=== PATIENT | female | born 1980 | race Caucasian/White ===

== ENCOUNTER 2023-06-22 06:31 | Emergency (ER) | payer SELFPAY ==
[2023-06-22 06:39] VITALS: BP 134/96; PULSE 84; RESP 16; TEMP 36.6; O2SAT 100; BMI 25.8
--- NOTE | 2023-06-22 07:00 | CRLHL7_ITS ---
For Patients: As a result of the Century Cures Act, medical imaging exams and procedure reports are released immediately into your electronic medical record. You may view this report before your referring provider. If you have questions, please contact your health care provider. INDICATION: Left lower quadrant abdominal pain diarrhea. COMPARISON: April 30, 2020 TECHNIQUE: CT examination of the abdomen and pelvis was performed following the uneventful intravenous administration of 79 cc of Isovue 370. Thin section axial images were obtained from the lung bases through the pubic symphysis. Oral contrast was not administered. Please note that all CT scans at this facility use dose modulation, iterative reconstruction, and/or weight-based dosing when appropriate to reduce radiation dose to as low as reasonably achievable. FINDINGS: LUNG BASES: The lung bases as visualized appear normal.The heart size is normal at the lung bases. LIVER/BILIARY SYSTEM:The liver is normal in size and configuration. There is no focal mass and there is no intra- or extra hepatic biliary ductal dilatation.Contracted but otherwise unremarkable appearing gallbladder ADRENALS: Normal KIDNEYS, URETERS and BLADDER:The kidneys appear normal. No visible mass, calculus or hydronephrosis. The ureters and bladder as visualized appear normal. SPLEEN:Normal appearance. PANCREAS: Appears normal. RETROPERITONEUM and MESENTERY: There is no mass, adenopathy or aortic aneurysm. GASTROINTESTINAL SYSTEM: Diffuse wall thickening of the colon and rectum consistent with proctocolitis. No intramural air, free air or collection. PELVIS: No mass, adenopathy or free fluid.An IUD appears to be properly located OSSEOUS STRUCTURES and ABDOMINAL WALL: There is an age-appropriate appearance of the osseous structures.No significant abdominal wall defect. OTHER: No free fluid or free air. IMPRESSION: Proctocolitis. No intramural air, free air or collection. Please note that all CT scans at this facility use dose modulation, iterative reconstruction, and/or weight-based dosing when appropriate to reduce radiation dose to as low as reasonably achievable. Dictated by Dilshad Cantor MD @ 06/22/2023 7:36:05 AM (Electronically Signed)
--- NOTE | 2023-06-22 07:07 | ED_ITS ---
HPI - General Adult General Date Seen: 06/22/23 Chief complaint: Abdominal Pain Stated complaint: diverticulitis flareup Time Seen by Provider: 06/22/23 06:49 Source: patient Mode of arrival: ambulatory Limitations: no limitations History of Present Illness HPI narrative: Patient is a 42-year-old woman with a history of kidney stones and an episode of diverticulitis she says diagnosed at [facility] 1 year ago. She has had left lower quadrant pain which started yesterday associated with diarrhea and some bright red blood per rectum. She describes the abdominal pain is severe. She has not had fevers, vomiting, perhaps a little dysuria but no hematuria. She has a history of a larger kidney stone requiring retrieval and stenting, but denies other abdominal surgeries. She does not smoke or drink. Related Data Previous Rx's Medication Instructions Recorded oxycodone 5 mg capsule 5 mg PO Q6H PRN pain #8 caps 06/22/23 Allergies Allergy/AdvReac Type Severity Reaction Status Date / Time No Known Drug Allergies Allergy Verified 06/22/23 06:41 Review of Systems Status of ROS: Reports: 10 or more systems reviewed and unremarkable except as noted in History and below [facility] Social History Smoking Status: Never smoker Do you use any of these nicotine containing products: None How often do you have a drink containing alcohol: monthly or less AUDIT-C Alcohol total score: 1 Non-prescribed substance use: denies use Exam Narrative: Exam Narrative: Vital signs as noted above. In general, an alert, nontoxic woman lying in a position. Head: Normocephalic, atraumatic. Eyes: Pupils are equal reactive. Extraocular movements are full. Conjunctivae are normal. ENT: Mucous membranes are moist. Throat is normal. Neck: Supple without lymphadenopathy. Heart: Regular rate and rhythm. No murmur or rub. Lungs: Clear bilaterally. No increased work of breathing, crackles or wheezes. Abdomen: Soft and nondistended. Left lower quadrant tenderness without rebound guarding or rigidity. No other abdominal tenderness. Extremities: Well perfused. No edema. No calf tenderness. Pulses intact. Neurologic: Patient is alert and oriented to person and place. Speech is fluent. Face is symmetric. Moves all extremities equally. Affect: Normal. Skin: Warm and dry. Well perfused. Const: Vital Signs, click to edit/add: Vital Signs - 24 hr 06/22/23 06:39 Temperature 97.9 F Pulse Rate [Left P ulse Oximeter] 84 Respiratory Rate 16 Blood Pressure [Ri ght Upper Arm] 134/96 H Pulse Oximetry 100 Oxygen Delivery Me thod Room Air Documenting provider has reviewed patient's vital signs: yes Course Course Hospital Course: Review of her records shows the number of CT scans, the majority have been normal. I do not see specific mention of diverticulosis previously, but these have generally been noncontrast CT scans. We established an IV, give some Toradol and Zofran, fluids. Labs including CBC, metabolic panel, CRP, lactate, UA are pending. Diagnostic considerations include diverticulitis, colitis, kidney stone, UTI/pyelonephritis, ovarian torsion, ovarian cyst, ectopic among others. Labs are reassuring, white blood cell count is 9.3 with an unremarkable diff. Hemoglobin is 14.3. Metabolic panel is normal aside from a mildly elevated BUN of 26. LFTs are unremarkable. CRP is less than 0.5 and lipase is normal. Urinalysis is entirely negative, 0-2 red cells and 0-2 white cells. test is negative. I did elect to do a CT scan of the abdomen to look for possible diverticulitis, colitis, kidney stone etcetera. Radiology reads this as showing diffuse thickening of the colon and rectum consistent with proctocolitis. I have reviewed this diagnosis with her. Interestingly, she does not appear to have significant diverticulosis, and I do wonder if the episode a year ago was more related to colitis rather than diverticulitis. She says that she feels like she gets the symptoms fairly frequently although milder than today with some abdominal pain and blood in her stools. I have recommended that she follow up with her primary care doctor and they discussed possible referral to GI and consider colonoscopy. She had Toradol, morphine and Zofran and is feeling improved. For home I have recommended use of ibuprofen 400 mg plus Tylenol 1000 mg 3 times daily, bland diet, and I have given her oxycodone number 8 if needed for more severe pain. Return to the emergency department for new symptoms such as fever, vomiting, or if pain is progressively worse. Vital Signs Vital signs: Initial Vital Signs Temperature 97.9 F 06/22/23 06:39 Temperature Source Temporal Artery Scan 06/22/23 06:39 Pulse Rate 84 06/22/23 06:39 Respiratory Rate 16 06/22/23 06:39 Blood Pressure 134/96 H 06/22/23 06:39 Blood Pressure Mean 108 H 06/22/23 06:39 Blood Pressure Position Sitting 06/22/23 06:39 Pulse Oximetry 100 06/22/23 06:39 Oxygen Delivery Method Room Air 06/22/23 06:39 Vital Signs Temperature 97.9 F 06/22/23 06:39 Pulse Rate 84 06/22/23 06:39 Respiratory Rate 16 06/22/23 06:39 Blood Pressure 134/96 H 06/22/23 06:39 Pulse Oximetry 100 06/22/23 06:39 Oxygen Delivery Method Room Air 06/22/23 06:39 Temperature 97.9 F 06/22/23 06:39 Pulse Rate 84 06/22/23 06:39 Respiratory Rate 16 06/22/23 06:39 Blood Pressure 134/96 H 06/22/23 06:39 Pulse Oximetry 100 06/22/23 06:39 Oxygen Delivery Method Room Air 06/22/23 06:39 Medical Decision Making Lab Data Labs: Lab Results 06/22/23 06/22/23 Range/Units 06:48 07:20 WBC 9.32 (4.50-11.00) K/uL RBC 4.85 (4.00-5.20) m/uL Hgb 14.3 (12.0-16.0) gm/dL Hct 43.6 (33.0-51.0) % MCV 90 (80-100) fL MCH 30 (26-34) pg MCHC 33 (32-36) gm/dL RDW Coeff of Sim 13.5 (11.5-15.5) % Plt Count 256 (140-440) K/uL Neut % (Auto) 53.7 (42.0-72.0) % Lymph % (Auto) 37.1 (20-44) % [place] % (Auto) 7.4 (0.0-11.0) % Eos % (Auto) 1.4 (0.0-7.0) % Baso % (Auto) 0.3 (0.0-3.0) % Neut # (Auto) 5.00 (1.7-7.0) K/uL Lymph # (Auto) 3.46 H (0.90-2.90) K/uL Barnes # (Auto) 0.70 (0.00-0.90) K/UL Eos # (Auto) 0.13 (0.00-0.50) K/uL Baso # (Auto) 0.03 (0.00-0.30) K/uL Abs Immat Gran (auto) 0.01 (0.00-0.30) K/uL Imm/Tot Granulo (auto) 0.1 % Sodium 139 (135-149) mmol/L Potassium 4.0 (3.6-5.1) mmol/L Chloride 105 (96-114) mmol/L Carbon Dioxide 26 (20-32) mmol/L BUN 26 H (5-24) mg/dL Creatinine 0.9 (0.5-1.5) mg/dL Estimated Creat Clear 77.79 Estimated GFR 83 ml/min Glucose 115 (60-115) mg/dL Calcium 9.7 (8.4-10.6) mg/dL Total Bilirubin 1.1 (0.1-1.5) mg/dL Direct Bilirubin 0.0 (0.0-0.5) mg/dL AST 26 (12-35) U/L ALT 25 (4-35) U/L Alkaline Phosphatase 48 (40-150) U/L C-Reactive Protein < 0.5 L (0.5-1.0) mg/dL Total Protein 7.3 (6.0-8.3) g/dL Albumin 4.5 (3.3-5.0) g/dL Lipase 124 (23-300) U/L Urine Color Yellow (Yellow) Urine Appearance Clear (Clear) Urine pH 6.0 (5.0-8.5) Ur Specific [place] 1.015 (1.000-1.030) Urine Protein Negative (Negative) Urine Glucose (UA) Negative (Negative) Urine Ketones Negative (Negative) Urine Blood Negative (Negative) Urine Nitrite Negative (Negative) Urine Bilirubin Negative (Negative) Urine Urobilinogen 0.2 (0.2-1.0) Ur Leukocyte Esterase Negative (Negative) Urine RBC 0-2 (0-2) Urine WBC 0-2 (0-5) Ur Squamous Epith Cells None (None-Few) Urine Bacteria None (None) Urine HCG, Qual Negative (Negative) Discharge Plan Discharge Clinical Impression: Colitis Patient Disposition: Home, Self-Care Condition: Improved Instructions: Colitis (ED) Additional Instructions: [place] diet, maintain hydration. Ibuprofen 400 mg plus Tylenol 1000 mg 3 times daily. Oxycodone if needed for more severe pain. Return to the ER for new symptoms such as fever, vomiting, or if pain is worsening rather than stable to improved. I would recommend follow-up with your primary care doctor in the next 1-2 weeks for recheck and discuss possible further evaluation. Prescriptions: New oxycodone 5 mg capsule 5 mg PO Q6H PRN (Reason: pain) Qty: 8 0RF Stand Alone Forms: [facility] Info Instructions
[2023-06-22 07:11] LABS: Basophils Absolute Auto 0.03 K/uL (0.00-0.30); Basophils Percent Auto 0.3 % (0.0-3.0); Eosinophils Absolute Auto 0.13 K/uL (0.00-0.50); Eosinophils Percent Auto 1.4 % (0.0-7.0); Hematocrit 43.6 % (33.0-51.0); Hemoglobin* 14.3 gm/dL (12.0-16.0); Immature Granulocytes Abs Auto 0.01 K/uL (0.00-0.30); Immature Granulocytes Pct Auto 0.1 %; Lymphocytes Absolute Auto 3.46 K/uL (0.90-2.90); Lymphocytes Percent Auto 37.1 % (20-44); Mean Corpuscular HGB Conc 33 gm/dL (32-36); Mean Corpuscular Hemoglobin 30 pg (26-34); Mean Corpuscular Volume 90 fL (80-100); Monocytes Percent Auto 7.4 % (0.0-11.0); Neutrophils Percent Auto 53.7 % (42.0-72.0); Platelet Count* 256 K/uL (140-440); RDW Coefficient of Variation % 13.5 % (11.5-15.5); Red Blood Count 4.85 m/uL (4.00-5.20); White Blood Count* 9.32 K/uL (4.50-11.00)
[2023-06-22 07:13] LABS: Slide Review Reflex No
[2023-06-22] MEDS: 0.9 % SODIUM CHLORIDE 1000 ml 1,000 ML IV (07:23)
[2023-06-22] MEDS: KETOROLAC 15 MG/ML inj IVP (07:24)
[2023-06-22] MEDS: ONDANSETRON 2 MG/ML inj 4 MG IVP (07:46)
[2023-06-22 07:47] LABS: Appearance Urine Clear (Clear); Bilirubin Urine Negative (Negative); Blood Urine Negative (Negative); Color Urine Yellow (Yellow); Glucose Urine Negative (Negative); Ketones Urine Negative (Negative); Nitrite Urine Negative (Negative); Protein Urine Negative (Negative); Specific Gravity Urine 1.015 (1.000-1.030); Urobilinogen Urine 0.2 (0.2-1.0)
[2023-06-22 07:48] LABS: Albumin* 4.5 g/dL (3.3-5.0); Chloride* 105 mmol/L (96-114); Sodium* 139 mmol/L (135-149)
[2023-06-22 07:48] LABS: Leukocyte Esterase Urine Negative (Negative); RBC Urine 0-2 (0-2); WBC Urine 0-2 (0-5)
[2023-06-22 07:50] LABS: Creatinine* 0.9 mg/dL (0.5-1.5); Est. Creatinine Clearance* 77.79; Estimated Glomerular Filt Rate 83 ml/min
[2023-06-22 07:51] LABS: Alkaline Phosphatase* 48 U/L (40-150); Aspartate Amino Transferase* 26 U/L (12-35); Bilirubin Total* 1.1 mg/dL (0.1-1.5); Carbon Dioxide* 26 mmol/L (20-32); Total Protein* 7.3 g/dL (6.0-8.3)
[2023-06-22 07:52] LABS: Alanine Aminotransferase* 25 U/L (4-35); Blood Urea Nitrogen* 26 mg/dL (5-24); Calcium* 9.7 mg/dL (8.4-10.6); Glucose* 115 mg/dL (60-115); Lipase* 124 U/L (23-300)
[2023-06-22 07:56] LABS: C Reactive Protein* < 0.5 mg/dL (0.5-1.0)
[2023-06-22] MEDS: MORPHINE 4 MG/ML INJ IVP (07:57)
--- NOTE | 2023-06-22 08:04 | ED.NURSE ---
repeated pain medication for patient as continues to be in a lot of pain. 8/10 scale given morphine 4 mg IVP now.
[2023-06-22 08:45] LABS: Ur HCG Qualitative* Negative (Negative)
[2023-06-22 09:04] VITALS: PULSE 66; RESP 18; O2SAT 100
== END 2023-06-22 09:03 | disposition home or self-care (01) ==
PROVIDERS: Emergency Provider Emergency Medicine
DX: K52.9 Noninfective gastroenteritis and colitis, unspecified (principal)
CPT/HCPCS: 36415; 74177; 80048; 80076; 81001; 81025; 83690; 85025; 86140; 96374; 96375; 99283; 99284; J1885; J2270; J2405; J7030; Q9967

== ENCOUNTER 2023-09-07 14:06 | Emergency (ER) | payer MEDICAID, SELFPAY ==
[2023-09-07 14:27] VITALS: BP 154/83; PULSE 97; RESP 20; TEMP 36.7; O2SAT 100; BMI 25.8
--- NOTE | 2023-09-07 15:39 | CRLHL7_ITS ---
For Patients: As a result of the Century Cures Act, medical imaging exams and procedure reports are released immediately into your electronic medical record. You may view this report before your referring provider. If you have questions, please contact your health care provider. INDICATION: Right flank pain. History of nephrolithiasis. TECHNIQUE: CT abdomen and pelvis without contrast. COMPARISON: June 22, 2023. FINDINGS: Lower chest: Unremarkable. Liver: Normal in size and attenuation. No suspicious masses. Gallbladder and bile ducts: No stones or inflammation. No biliary dilatation. Pancreas: Unremarkable. No mass or inflammation. Spleen: Normal in size. No masses. Adrenal glands: Normal in size. No nodules. Kidneys: Each kidney contains a tiny nonobstructive stone. No ureteral stone and no hydronephrosis. GI tract: Unremarkable. Normal in caliber. No sign of mass or inflammation. Normal appendix. Vasculature: Abdominal aorta is normal in caliber. Lymph nodes: No lymphadenopathy. Peritoneum/Abdominal Wall: Unremarkable. No sign of mass or infiltration. No free air or significant free fluid. Pelvis: IUD remains in satisfactory position. New 4 x 3 cm simple appearing left adnexal cystic lesion on series 2, image 109. Pelvic structures otherwise unremarkable. Bones: Unremarkable for age. IMPRESSION: 1. Minimal bilateral nonobstructive nephrolithiasis. No ureteral stone and no hydronephrosis. 2. New 4 x 3 cm simple left adnexal cyst without evidence of rupture. This is almost certainly benign and does not require follow-up evaluation. 3. Remainder of the exam is unremarkable. No other finding to explain right-sided pain. Please note that all CT scans at this facility use dose modulation, iterative reconstruction, and/or weight-based dosing when appropriate to reduce radiation dose to as low as reasonably achievable. Dictated by Sharan Lopez MD @ 09/07/2023 6:09:07 PM (Electronically Signed)
--- NOTE | 2023-09-07 15:41 | ED.ABDPAIN ---
HPI - Abdominal Pain General Chief Complaint: Abdominal Pain Stated Complaint: Fever, abdominal pain Time Seen by Provider: 09/07/23 15:28 History of Present Illness HPI narrative: This 42-year-old female comes in reporting right flank pain that began today. She states that the pain is severe and she has had some associated nausea and vomiting. She states that the pain makes her want to squirm to try to get into a comfortable position. She does have a history of bilateral kidney stones and had 1 on the left side earlier this year that needed surgical intervention. She also has a history of generalized colitis. She has had endoscopy and colonoscopy this year. She also states that she has some biliary sludge and did have elevated bilirubin in a previous lab results. Related Data Previous Rx's Medication Instructions Recorded hydrocodone 5 mg-acetaminophen 325 1 tab PO Q4-6H PRN pain #15 tabs 09/07/23 mg tablet ketorolac 10 mg tablet 10 mg PO Q8H 5 days #15 tabs 09/07/23 methylprednisolone 4 mg tablets in See Rx Instructions PO .COMPLEX 09/07/23 a dose pack (Medrol (Hardik)) #21 ea ondansetron 4 mg disintegrating 4 mg PO Q6H #20 tabs 09/07/23 tablet Allergies Allergy/AdvReac Type Severity Reaction Status Date / Time No Known Drug Allergies Allergy Verified 06/22/23 06:41 Review of Systems Status of ROS Reports: 10 or more systems reviewed and unremarkable except as noted in History and below Narrative Constitutional: No fevers, no weight gain or loss. Eyes: No discharge. No vision changes. HENT: No congestion, no sore throat, no ear pain. Cardiovascular: No chest pain, no palpitations. Respiratory: No shortness of breath, no wheezes, no cough. Gastrointestinal: Chronic left-sided abdominal pain. Right-sided flank pain. Nausea with some vomiting. Genitourinary: No dysuria, no hematuria. Musculoskeletal: Normal range of motion. Skin: No rashes, no pruritis. Neurological: No dizziness, weakness, sensory change, speech change. Endo/Heme/Allergies: No bruising or bleeding. No polydipsia. Pysch: no suicidality, no anxiety, no insomnia. All other systems reviewed and are negative. PFSH PFSH Social History Smoking Status: Never smoker Do you use any of these nicotine containing products: None How often do you have a drink containing alcohol: never How often do you have six or more drinks on one occasion: Never AUDIT-C Alcohol total score: 0 Non-prescribed substance use: denies use Exam Narrative: Exam Narrative: Constitutional: Well-developed, well-nourished, no acute distress. HEENT: Normocephalic, atraumatic. Neck: Normal range of motion. Nontender. Supple. Heart: Regular. No murmurs. Normal rate. Intact distal pulses. Lungs: Clear to auscultation. No chest discomfort. No wheezes, rhonchi, or rales. Abdomen: Normal bowel sounds. Diffuse left-sided tenderness. Rebound tenderness is present. Right flank pain. Genitalia: Deferred. Back: No midline tenderness. Normal range of motion. Extremities: Normal range of motion. No injury. Skin: Intact. No rash. Warm. No erythema or pallor. Neurologic: No altered sensation. No weakness. Alert and oriented. Psychiatric: No suicidality. No anxiety or depression. No insomnia. Nursing notes and vitals signs are reviewed. Const: Vital Signs, click to edit/add: Vital Signs - 24 hr 09/07/23 14:27 Temperature 98.1 F Pulse Rate [Pulse Oximeter] 97 Respiratory Rate 20 Blood Pressure [Ri ght Upper Arm] 154/83 H Pulse Oximetry 100 Oxygen Delivery Me thod Room Air Course Vital Signs Vital signs: Initial Vital Signs Temperature 98.1 F 09/07/23 14:27 Temperature Source Temporal Artery Scan 09/07/23 14:27 Pulse Rate 97 09/07/23 14:27 Respiratory Rate 20 09/07/23 14:27 Blood Pressure 154/83 H 09/07/23 14:27 Blood Pressure Mean 106 H 09/07/23 14:27 Blood Pressure Position Sitting 09/07/23 14:27 Pulse Oximetry 100 09/07/23 14:27 Oxygen Delivery Method Room Air 09/07/23 14:27 Vital Signs Temperature 98.1 F 09/07/23 14:27 Pulse Rate 97 09/07/23 14:27 Respiratory Rate 20 09/07/23 14:27 Blood Pressure 154/83 H 09/07/23 14:27 Pulse Oximetry 100 09/07/23 14:27 Oxygen Delivery Method Room Air 09/07/23 14:27 Temperature 98.1 F 09/07/23 14:27 Pulse Rate 97 09/07/23 14:27 Respiratory Rate 20 09/07/23 14:27 Blood Pressure 154/83 H 09/07/23 14:27 Pulse Oximetry 100 09/07/23 14:27 Oxygen Delivery Method Room Air 09/07/23 14:27 MDM - Abdominal Pain MDM Narrative Medical decision making narrative: This patient comes in with severe right-sided flank and abdominal pain that seemed suspicious for kidney stone as she does have this in her history. CT scan of the abdomen and pelvis however shows nonobstructive stones in the kidneys but no sign of any abnormality that would cause right-sided abdominal pain. She does have a adnexal cyst in the left side that she already knew about. Additionally her lab results returned with reassuring findings. 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 She did receive IV doses of Toradol and Dilaudid here and is feeling better. She states that this pain is keeping her awake at night. She is considering taking Lupron for the possibility of endometriosis. I advised her to follow-up with her regular physicians for ongoing diagnosis and management. I did prescribe Toradol, Zofran, [place], and Medrol Dosepak. Perhaps a steroid will bring some relief especially if it has a rheumatologic or inflammatory source for the pain. Lab Data Labs: Lab Results 09/07/23 09/07/23 Range/Units 15:50 17:15 WBC 7.82 (4.50-11.00) K/uL RBC 4.34 (4.00-5.20) m/uL Hgb 13.2 (12.0-16.0) gm/dL Hct 39.9 (33.0-51.0) % MCV 92 (80-100) fL MCH 30 (26-34) pg MCHC 33 (32-36) gm/dL RDW Coeff of Sim 13.4 (11.5-15.5) % Plt Count 229 (140-440) K/uL Neut % (Auto) 65.2 (42.0-72.0) % Lymph % (Auto) 26.9 (20-44) % [place] % (Auto) 7.2 (0.0-11.0) % Eos % (Auto) 0.3 (0.0-7.0) % Baso % (Auto) 0.3 (0.0-3.0) % Neut # (Auto) 5.11 (1.7-7.0) K/uL Lymph # (Auto) 2.10 (0.90-2.90) K/uL [place] # (Auto) 0.60 (0.00-0.90) K/UL Eos # (Auto) 0.02 (0.00-0.50) K/uL Baso # (Auto) 0.02 (0.00-0.30) K/uL Abs Immat Gran (auto) 0.01 (0.00-0.30) K/uL Imm/Tot Granulo (auto) 0.1 % Sodium 139 (135-149) mmol/L Potassium 3.7 (3.6-5.1) mmol/L Chloride 106 (96-114) mmol/L Carbon Dioxide 23 (20-32) mmol/L Anion Gap 10 (7-15) mEq/L BUN 11 (5-24) mg/dL Creatinine 0.6 (0.5-1.5) mg/dL Estimated Creat Clear 116.68 Estimated GFR 116 ml/min Glucose 75 (60-115) mg/dL Calcium 9.0 (8.4-10.6) mg/dL Total Bilirubin 2.0 H (0.1-1.5) mg/dL Direct Bilirubin 0.0 (0.0-0.5) mg/dL AST 34 (12-35) U/L ALT 25 (4-35) U/L Alkaline Phosphatase 50 (40-150) U/L Total Protein 7.6 (6.0-8.3) g/dL Albumin 4.7 (3.3-5.0) g/dL Urine Color Yellow (Yellow) Urine Appearance Clear (Clear) Urine pH 6.0 (5.0-8.5) Ur Specific [place] 1.025 (1.000-1.030) Urine Protein Negative (Negative) Urine Glucose (UA) Negative (Negative) Urine Ketones 2+ A (Negative) Urine Blood Negative (Negative) Urine Nitrite Negative (Negative) Urine Bilirubin Negative (Negative) Urine Urobilinogen 0.2 (0.2-1.0) Ur Leukocyte Esterase Negative (Negative) Urine RBC 0-2 (0-2) Urine WBC 0-2 (0-5) Ur Squamous Epith Cells None (None-Few) Urine Bacteria None (None) Imaging Data CT scan - abdomen: Radiologist's impression: 1. Minimal bilateral nonobstructive nephrolithiasis. No ureteral stone and no hydronephrosis. 2. New 4 x 3 cm simple left adnexal cyst without evidence of rupture. This is almost certainly benign and does not require follow-up evaluation. 3. Remainder of the exam is unremarkable. No other finding to explain right-sided pain. Discharge Plan Discharge Clinical Impression: Abdominal pain Patient Disposition: Home, Self-Care Condition: Stable Additional Instructions: Take medication as prescribed. Follow up with MD. return if worsening. Prescriptions: New hydrocodone-acetaminophen 5-325 mg tablet 1 tab PO Q4-6H PRN (Reason: pain) Qty: 15 0RF ketorolac 10 mg tablet 10 mg PO Q8H 5 Days Qty: 15 0RF methylprednisolone [Medrol (Hardik)] 4 mg tablets,dose pack See Rx Instructions .ROUTE .COMPLEX Qty: 21 0RF Rx Instructions: orally per package directions ondansetron 4 mg tablet,disintegrating 4 mg PO Q6H Qty: 20 0RF Follow Up/Referrals: Provider,Not a Local [Primary Care Provider] - Stand Alone Forms: [employer] Info Instructions
[2023-09-07] MEDS: ONDANSETRON 2 MG/ML inj 4 MG IVP (15:50)
[2023-09-07] MEDS: KETOROLAC 30 MG/ML inj IVP (15:50)
[2023-09-07] MEDS: HYDROmorphone 0.5 mg/0.5 ml inj IVP ×2 (15:50→16:55)
[2023-09-07 16:07] LABS: Basophils Absolute Auto 0.02 K/uL (0.00-0.30); Basophils Percent Auto 0.3 % (0.0-3.0); Eosinophils Absolute Auto 0.02 K/uL (0.00-0.50); Eosinophils Percent Auto 0.3 % (0.0-7.0); Hematocrit 39.9 % (33.0-51.0); Hemoglobin* 13.2 gm/dL (12.0-16.0); Immature Granulocytes Abs Auto 0.01 K/uL (0.00-0.30); Immature Granulocytes Pct Auto 0.1 %; Lymphocytes Percent Auto 26.9 % (20-44); Mean Corpuscular HGB Conc 33 gm/dL (32-36); Mean Corpuscular Hemoglobin 30 pg (26-34); Mean Corpuscular Volume 92 fL (80-100); Monocytes Percent Auto 7.2 % (0.0-11.0); Neutrophils Absolute Auto 5.11 K/uL (1.7-7.0); Neutrophils Percent Auto 65.2 % (42.0-72.0); Platelet Count* 229 K/uL (140-440); RDW Coefficient of Variation % 13.4 % (11.5-15.5); Red Blood Count 4.34 m/uL (4.00-5.20); White Blood Count* 7.82 K/uL (4.50-11.00)
[2023-09-07 16:13] LABS: Slide Review Reflex No
[2023-09-07 16:20] LABS: Chloride* 106 mmol/L (96-114); Potassium* 3.7 mmol/L (3.6-5.1); Sodium* 139 mmol/L (135-149)
[2023-09-07 16:21] LABS: Albumin* 4.7 g/dL (3.3-5.0)
[2023-09-07 16:22] LABS: Creatinine* 0.6 mg/dL (0.5-1.5); Est. Creatinine Clearance* 116.68; Estimated Glomerular Filt Rate 116 ml/min
[2023-09-07 16:23] LABS: Blood Urea Nitrogen* 11 mg/dL (5-24); Carbon Dioxide* 23 mmol/L (20-32); Glucose* 75 mg/dL (60-115); Total Protein* 7.6 g/dL (6.0-8.3)
[2023-09-07 16:24] LABS: Alanine Aminotransferase* 25 U/L (4-35); Alkaline Phosphatase* 50 U/L (40-150); Anion Gap 10 mEq/L (7-15); Aspartate Amino Transferase* 34 U/L (12-35)
[2023-09-07 17:24] LABS: Appearance Urine Clear (Clear); Bilirubin Urine Negative (Negative); Blood Urine Negative (Negative); Color Urine Yellow (Yellow); Glucose Urine Negative (Negative); Ketones Urine 2+ (Negative); Leukocyte Esterase Urine Negative (Negative); Nitrite Urine Negative (Negative); Protein Urine Negative (Negative); Specific Gravity Urine 1.025 (1.000-1.030); Urobilinogen Urine 0.2 (0.2-1.0)
[2023-09-07 17:35] LABS: RBC Urine 0-2 (0-2); WBC Urine 0-2 (0-5)
== END 2023-09-07 18:45 | disposition home or self-care (01) ==
PROVIDERS: Emergency Provider Emergency Medicine Emergency Medical Services
DX: R10.9 Unspecified abdominal pain (principal)
CPT/HCPCS: 36415; 74176; 80048; 80076; 81001; 85025; 96374; 96375; 99284; 99285; J1170; J1885; J2405

== ENCOUNTER 2024-05-12 02:46 | Emergency (ER) | payer BC, SELFPAY ==
[2024-05-12 02:52] VITALS: BP 157/93; PULSE 91; RESP 16; TEMP 37.4; O2SAT 97; BMI 23.5
--- NOTE | 2024-05-12 03:13 | ED_ITS ---
HPI - General Adult General Date Seen: 05/12/24 Chief complaint: Shoulder Injury/Pain Stated complaint: right shoulder pain Time Seen by Provider: 05/12/24 03:12 Source: patient Mode of arrival: ambulatory Limitations: no limitations History of Present Illness HPI narrative: 43-year-old female who is on meds for chronic pain who presents with an injury to her right shoulder that occurred while lifting a case of water bottles earlier today. She is not here looking for pain meds but wants to make sure that she did not damage the shoulder. Related Data Previous Rx's ?Medication ?Instructions ?Recorded hydrocodone 5 mg-acetaminophen 325 1 tab PO Q4-6H PRN pain #15 tabs 09/07/23 mg tablet ketorolac 10 mg tablet 10 mg PO Q8H 5 days #15 tabs 09/07/23 methylprednisolone 4 mg tablets in See Rx Instructions PO .COMPLEX 09/07/23 a dose pack (Medrol (Hardik)) #21 ea ondansetron 4 mg disintegrating 4 mg PO Q6H #20 tabs 09/07/23 tablet Allergies Allergy/AdvReac Type Severity Reaction Status Date / Time No Known Drug Allergies Allergy Verified 06/22/23 06:41 Review of Systems Narrative: Review of systems is outlined above otherwise noted to be negative. PFSH PFS Social History Smoking Status: Never smoker Do you use any of these nicotine containing products: None How often do you have a drink containing alcohol: never How often do you have six or more drinks on one occasion: Never AUDIT-C Alcohol total score: 0 Non-prescribed substance use: marijuana (any form) Exam Narrative: Exam Narrative: Objective: Vitals noted. Her right shoulder exam is essentially normal. There is no bony tenderness. Normal range of motion. There is little crepitus with movement. Normal neurologic exam. Const: Vital Signs, click to edit/add: Vital Signs - 24 hr 05/12/24 02:52 Temperature 99.4 F Pulse Rate [Pulse Oximeter] 91 Respiratory Rate 16 Blood Pressure [Ri ght Upper Arm] 157/93 H Pulse Oximetry 97 Oxygen Delivery Me thod Room Air Course Course ED Course: Patient is seen and examined. X-ray of the shoulder is normal. Vital Signs Vital signs: Initial Vital Signs Temperature 99.4 F 05/12/24 02:52 Temperature Source Temporal Artery Scan 05/12/24 02:52 Pulse Rate 91 05/12/24 02:52 Respiratory Rate 16 05/12/24 02:52 Blood Pressure 157/93 H 05/12/24 02:52 Blood Pressure Mean 114 H 05/12/24 02:52 Blood Pressure Position Sitting 05/12/24 02:52 Pulse Oximetry 97 05/12/24 02:52 Oxygen Delivery Method Room Air 05/12/24 02:52 Vital Signs Temperature 99.4 F 05/12/24 02:52 Pulse Rate 91 05/12/24 02:52 Respiratory Rate 16 05/12/24 02:52 Blood Pressure 157/93 H 05/12/24 02:52 Pulse Oximetry 97 05/12/24 02:52 Oxygen Delivery Method Room Air 05/12/24 02:52 Temperature 99.4 F 05/12/24 02:52 Pulse Rate 91 05/12/24 02:52 Respiratory Rate 16 05/12/24 02:52 Blood Pressure 157/93 H 05/12/24 02:52 Pulse Oximetry 97 05/12/24 02:52 Oxygen Delivery Method Room Air 05/12/24 02:52 Medications Administered Medications: Discontinued Medications Generic Name Dose Route Start Last Admin Trade Name Freq PRN Reason Stop Dose Admin Ketorolac Tromethamine 30 mg 05/12/24 04:12 05/12/24 04:18 Ketorolac 30 Mg/Ml Inj IM 05/12/24 04:13 30 mg ONCE ONE Administration Discharge Plan Discharge Clinical Impression: Acute pain of right shoulder Patient Disposition: Home, Self-Care Condition: Stable Additional Instructions: Ibuprofen 800 mg 3 times daily for pain. Tylenol 1000 mg 3 times daily for pain. Oxycodone as needed for refractory pain. Ice, sling, rest. Follow-up with your PCP next week for re-evaluation. Prescriptions: No Action hydrocodone-acetaminophen 5-325 mg tablet 1 tab PO Q4-6H PRN (Reason: pain) Qty: 15 0RF ketorolac 10 mg tablet 10 mg PO Q8H 5 Days Qty: 15 0RF methylprednisolone [Medrol (Hardik)] 4 mg tablets,dose pack See Rx Instructions .ROUTE .COMPLEX Qty: 21 0RF Rx Instructions: orally per package directions ondansetron 4 mg tablet,disintegrating 4 mg PO Q6H Qty: 20 0RF Follow Up/Referrals: Provider,Not a Local [Primary Care Provider] - Stand Alone Forms: [employer] Info Instructions
--- NOTE | 2024-05-12 03:20 | CRLHL7_ITS ---
For Patients: As a result of the Cures Act, medical imaging exams and procedure reports are released immediately into your electronic medical record. You may view this report before your referring provider. If you have questions, please contact your health care provider. INDICATION: Pain COMPARISON: None. TECHNIQUE: Three views right shoulder FINDINGS: No fracture. Normal alignment. Joint spaces are normal. No focal bone lesions. Normal bone mineralization. Soft tissues are normal. No foreign body. IMPRESSION: Normal right shoulder radiographs. Dictated by Josette Munoz MD @ 05/12/2024 4:11:52 AM (Electronically Signed)
--- OUTSIDE RECORDS SUMMARY | 2024-05-12 03:26 | XMS_ITS | Encounter Summary ---
Author Organization [facility] Address [address], [place] [address] Care Team Providers Care Livestock Counter Name Role Phone Dima Shah APRN, TARYN Primary Care Provide r Reason for Visit * Reason Comments Pelvic Health Encounter Details Date Type Department Care Team (Late st Contact Info) Description 05/11/2024 1:00 PM CDT Office Visit [facility] [phone] [place] [address] [place] [address] Pelvic and perineal pain (Primary Dx); Left lower quadrant abdominal pain Social History Tobacco Use Types Packs/Day Years Used Date Smoking Tobacco: Former Cigarettes 0.5 19 Smokeless Tobacco: Never Alcohol Use Standard Drinks/Week Comments Not Currently 1 (1 standard drink = 0.6 oz pur e alcohol) occa. PHQ-2 Answer Date Recorded PHQ-2 Score 2 02/17/2024 Sex and Gender Information Value Date Recorded Sex Assigned at Not on file Gender Identity Not on file Sexual Orientation Not on file documented as of this encounter Plan of Treatment Upcoming Encounters Date Type Department Care Team (Late st Contact Info) Description 05/19/2024 9:15 AM CDT Appointment [facility] [address] [place] [phone] Marla Sprague APRN, FINAL INSTALLER INSPECTOR [address] [place] [address] 05/31/2024 1:45 PM CDT Telemedicine [facility]-DENIAL MANAGEMENT REPRESENTATIVE [address] [facility], [address] [place] [phone] [place] [address] [place] [address] [place] [phone] documented as of this encounter Visit Diagnoses Diagnosis Pelvic and perineal pain- Primary Unspecified symptom associated with female genital organs Left lower quadrant abdominal pain documented in this encounter Care Teams Livestock Counter Relationship Specialty Start Date End Date Dima Shah APRN, FINAL INSTALLER INSPECTOR [address] [place] [address] PCP - General Nurse Practitioner 08/05/23 documented as of this encounter
--- OUTSIDE RECORDS SUMMARY | 2024-05-12 03:26 | XMS_ITS | Encounter Summary ---
Author Organization [facility] Address [address] [place] [address] Care Team Providers Care Herb Doctor Name Role Phone Dima Shah APRN, UTILITY WORKER FILM PROCESSING Primary Care Provide r Reason for Visit * Reason Comments UPDATE Encounter Details Date Type Department Care Team (Late st Contact Info) Description 05/05/2024 Telephone [facility] [address] [facility] [address] [facility] [place] [address] Marla Sprague APRN, UTILITY WORKER FILM PROCESSING [address] [place] [address] UPDATE Social History Tobacco Use Types Packs/Day Years [...] on file documented as of this encounter Nursing Notes * Dianne Adame RN - 05/09/2024 9:42 AM CDT Patient was calling requesting a pain mediation for her fibromyalgia. Patient is aware she had to be seen in person but would like to be seen sooner. Patient was transferred to scheduling to see if there is anything sooner than 05/19. Patient is aware if she scheduled a video visit prior to, to talkto provide she still has to be seen on 05/19 in person. * Karie Crain RN - 05/08/2024 3:39 PM CDT Updated patient who verbalized understanding. No questions or additional concerns noted at this time. Patient has a follow up on 05/19 and agree's to discuss plan of care then. * Marla Sprague APRN, CNP - 05/08/2024 12:09 PM CDT She has been evaluated by GI, B[employer] AND S[employer]INGS SECURITIES TRADER and without any cause of pain being found. Her MRI of the spine showed no reason for significant pain, rheumatology labs are negative, so my diagnosis is most likely fibromyalgia, which is worsened by opioids, which may be why she is requiring more. * Chirsta Hitchcock RN - 05/08/2024 10:58 AM CDT I had a conversation with patient. She only has 5 tabs left of her Oxycodone, she has been using way more than what is prescribed and she is aware no early refill (she is out almost 2 weeks early). Patient wants to know what are the next steps to determine what is going on with her condition. Patient states that nobody can seem to figure out what is wrong with her and she just wants to know. She needs direction on where to go to figure out this pain. She has been using the dicyclomine 3-4 times/day consistently and not seeing any change in symptoms. * Marla Sprague APRN, CNP - 05/05/2024 2:08 PM CDT I will not increase her opioids for this chronic pain. We have not found any reason for her pain tosupport continuing with opioids,her imaging does not explain her symptoms. * Josseline Collado MA - 05/05/2024 1:59 PM CDT Patient calling in to see if you can increase her medication as she wasn't doing too well a couple weeks ago. She also rescheduled her appt to sooner vs 2 months from her last appt and would like to know if it could be a video instead of in person per instructions. Please verify and call patient back. Thank you documented in this encounter Plan of Treatment Upcoming Encounters Date Type Department Care Team (Late st Contact Info) Description 05/19/2024 9:15 AM CDT Appointment [facility] [address] [place] [phone] Marla Sprague APRN, UTILITY WORKER FILM PROCESSING [address] [place] [address] 05/31/2024 1:45 PM CDT Telemedicine [facility]-INDUSTRIAL RELATIONS WORKER [address] [facility], [address] [place] [phone] [place] [address] [address] documented as of this encounter Visit Diagnoses Not on filedocumented in this encounter Care Teams Herb Doctor Relationship Specialty Start Date End Date Dima Shah APRN, UTILITY WORKER FILM PROCESSING [address] [place] [address] PCP - General Nurse Practitioner 08/05/23 documented as of this encounter
--- OUTSIDE RECORDS SUMMARY | 2024-05-12 03:26 | XMS_ITS | Encounter Summary ---
Author Organization [facility] Address [address] [place] [address] Care Team Providers Care Popped Corn Oven Attendant Name Role Phone Dima Shah APRN, TAILERCPA Primary Care Provide r Reason for Visit * Reason Comments Medication Problems Oxycodone Encounter Details Date Type Department Care Team (Late st Contact Info) Description 05/09/2024 Telephone [facility] [address] [facility] [address] [place] [address] Marla Sprague APRN, TARYN [address] [place] [address] Medication Problems (Oxycodone) Social History Tobacco Use Types Packs/Day Years [...] as of this encounter Nursing Notes * Chioma Chowdary RN - 05/11/2024 9:37 AM CDT Patient contacted nurse line to report issues with medication. She states that the pharmacy needs the prescription to be written differently and that Marla Sprague was aware of what could potentially be the issue. RN contacted Marla Sprague to discuss and prescription was switched to reflect TID dosing instead of BID however, patient should only be taking this medication BID. RN emphasized this to patient who verbalized understanding. No further questions or concerns at this time. documented in this encounter Plan of Treatment Upcoming Encounters Date Type Department Care Team (Late st Contact Info) Description 05/19/2024 9:15 AM CDT Appointment [facility] [address] [place] [phone] Marla Sprague APRN, TAILERCPA [address] [place] [address] 05/31/2024 1:45 PM CDT Telemedicine [facility]WAITRESS [address] [facility], [address] [place] [phone] [place] [address] [phone] documented as of this encounter Visit Diagnoses Not on filedocumented in this encounter Care Teams Popped Corn Oven Attendant Relationship Specialty Start Date End Date Dima Shah APRN, TAILERCPA [address] [place] [address] PCP - General Nurse Practitioner 08/05/23 documented as of this encounter
--- OUTSIDE RECORDS SUMMARY | 2024-05-12 03:26 | XMS_ITS | Encounter Summary ---
Author Organization [facility] Address [address] [place] [address] Care Team Providers Care Equipment Maintenance Tech Name Role Phone Dima Shah APRN, EARLY CHILDHOOD SPECIAL EDUCATOR Primary Care Provide r Reason for Visit * Reason Onset Date Comments Refill 04/19/2024 Encounter Details Date Type Department Care Team (Late st Contact Info) Description 04/19/2024 Refill [place] [address] [facility] [address] [facility] [place], [place] [phone] Marla Sprague APRN, EARLY CHILDHOOD SPECIAL EDUCATOR [address] [place], [place] [phone] Refill Social History Tobacco Use Types Packs/Day Years [...] Nursing Notes * Chioma Chowdary RN - 04/19/2024 9:43 AM CDT Last OV: 04/04/2024 Next OV: 06/09/2024 Last refill date: 03/24/2024 Plan: Continue oxycodone 5mg 1-2 tablets daily for severe pain #60. May call for one refill prior to nextvisit.if we cannot find an indication for pain, would then recommend taper in upcoming months documented in this encounter Plan of Treatment Upcoming Encounters Date Type Department Care Team (Late st Contact Info) Description 05/19/2024 9:15 AM CDT Appointment [facility] [address] [place] [phone] Marla Sprague APRN, EARLY CHILDHOOD SPECIAL EDUCATOR [address] [place] [address] 05/31/2024 1:45 PM CDT Telemedicine [facility]-SOCIAL RESEARCH ASSISTANT [address] [facility], [address] [place] [phone] [place] [address] [place] [address] documented as of this encounter Visit Diagnoses Diagnosis Chronic pain syndrome documented in this encounter Care Teams Equipment Maintenance Tech Relationship Specialty Start Date End Date Dima Shah APRN, EARLY CHILDHOOD SPECIAL EDUCATOR [id number] [place] [address] [place] [address] PCP - General Nurse Practitioner 08/05/23 documented as of this encounter
--- OUTSIDE RECORDS SUMMARY | 2024-05-12 03:26 | XMS_ITS | Encounter Summary ---
Author Organization [facility] Address [address], [place] [address] Care Team Providers Care Biological Science Technician Fish Name Role Phone Dima Shah APRN, CNP Primary Care Provide r Reason for Referral * Procedure/Equipment (Routine) - Incomplete Specialty Diagnoses / Procedures Referred By Contac t Referred To Contact Diagnoses Chronic bilateral low back pain without sciatica Mid back pain Procedures MR Thoracic Spine WO IV Cont Darcie, Marla Lyn APRN, BOX STRAPPER [address] [place] [address] Referral ID Status Reason Start Date Expiration Date V isits Requested Visits Authorized [id number] Incomplete 04/04/2024 07/04/2025 1 1 * Procedure/Equipment (Routine) - Incomplete Specialty Diagnoses / Procedures Referred By Contac t Referred To Contact Diagnoses Chronic bilateral low back pain without sciatica Mid back pain Procedures MR Lumbar Spine WO IV Cont Marla Sprague APRN, BOX STRAPPER [address] [place] [address] Referral ID Status Reason Start Date Expiration Date V isits Requested Visits Authorized [id number] Incomplete 04/04/2024 07/04/2025 1 1 Reason for Visit * Reason Comments Video Visit Encounter Details Date Type Department Care Team (Late st Contact Info) Description 04/04/2024 9:45 AM CDT Telemedicine [facility] [address] [place] [address]. [place] [address] Marla Sprague APRN, CNP [address] [place] [address] Chronic bilateral low back pain without sciatica (Primary Dx); Mid back pain; BHAVESH (generalized anxiety disorder) ([facility]); LLQ pain; Chronic, continuous use of opioids Social History Tobacco Use Types Packs/Day Years [...] on file documented as of this encounter Progress Notes * Marla Sprague APRN, CNP - 04/04/2024 9:45 AM CDT This visit was completed as a virtual video visit using a synchronous, two-way, audio-video technology platform. All issues as documented above were discussed and addressed. Due to the nature of an audio-video modality, the only components of a physical exam that could be done are the elements supported by direct visual observation. If it was felt that the patient should be evaluated in clinic alberto an emergency room setting, then this was discussed with the patient. Patient identification was verified at the start of the visit, including the patient's name, date of , and physical location in case of emergency. Patient was in her home. Provider was in clinic. Patient verbally consented to visit and demonstrated an understanding of the limitations of this virtual visit. F/U visit in PM&R/ Interventional Pain Management Subjective: Tiara Agee is a 43 y.o. female presents for evaluation regarding chronic pain Pain location: low back, right side Pain Severity: 6-9/10 Timing: constant Quality: dull/aching, sharp/stabbing Trend: staying the same Aggravated by unsure Improved by medications Associated symptoms: denies numbness and tingling , denies weakness , Denies any spinal related bowel or bladder changes. Treatment has included: started Pelvic PT PRIOR TREATMENTS: Ultrasound, Heat, and Medications PRIOR INJECTIONS: N/A PRIOR MEDICATIONS: Tylenol, Biofreeze, castor oil, Toradol, ibuprofen, amitriptyline, hydrocodone, -tizanidine trial-wasn't helpful for pain CURRENT PAIN TREATMENTS -Tylenol -amitriptyline trial 10mg -20mg -oxycodone trial -Medical cannabis trial Tiara Agee is a 43 y.o. with chronic left lower quadrant abdominal pain. *Unclear etiology - has seen ObGyn and GI. Pending follow up with Urology. *Not diabetic. *No blood thinners. * 10/22/23 - Tiara is on a journey to find a definitive cause of her pain. 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 Tiara was a patient of Tiara Hollingsworth that I saw while she was on leave. She did see urology on 01/12/2024 and they had done some imaging and urology did not believe the pain was from the ureter. Urology has recommended Pelvic floor PT. She was seen by [facility] for follow up as the thought of the pain was endometriosis. They took out the IUD and started norethindrone and told her it would take 3-4 weeks to note relief. After 8 weeks she had no change to her pain, and so endometriosis was ruled out. She had seen Pelvic PT who feels it is more colon related and is working with Tiara to better manage that. She had seen GI for a video visit in fall 2022. Previously had 2 CT scans and colonoscopy +EGD havenot shown a source for this pain. Tiara doesn't like how the oxycodone makes her brain feel. She waits to take it until she is miserable. She is currently using this 5 days a week. She will use 1/2 tab some days and other days she needs 3. She uses the #60 tabs in a month. She isn't using the medical cannabis currently. ROS: Denies any new GI, , ENT, Vision, Abdominal pain, headache, breathing difficulty, fevers, fatigue, weight changes, edema, or chest pain. SOCIAL HISTORY Marital status: Engaged Occupation: Stay at home mom Tobacco use: Former Alcohol use: No Drug use: No History of substance use disorder treatment: No Medications: Reviewed in [facility] Allergies: Reviewed in [facility] Past medical, surgical and social history: Reviewed in [facility] Physical Examination: vital signs There were no vitals taken for this visit. Physical Exam Constitutional: Appearance: Normal appearance. Pulmonary: Effort: Pulmonary effort is normal. Neurological: General: No focal deficit present. Mental Status: She is alert and oriented to person, place, and time. Psychiatric: Mood and Affect: Mood normal. Behavior: Behavior normal. Thought Content: Thought content normal. Judgment: Judgment normal. Assessment: ICD-10-CM 1. Chronic bilateral low back pain without sciatica M54.50 MR Lumbar Spine WO IV Cont G89.29 MR Thoracic Spine WO IV Cont diazePAM (VALIUM) 5 MG tablet 2. Mid back pain M54.9 MR Lumbar Spine WO IV Cont MR Thoracic Spine WO IV Cont diazePAM (VALIUM) 5 MG tablet 3. BHAVESH (generalized anxiety disorder) ([facility]) F41.1 4. LLQ pain R10.32 5. PTSD (post-traumatic stress disorder) ([facility]) F43.10 Plan: Plan for Pelvic PT Could consider Occupational Therapy (Lifestyle Renewal program), Pain Psychology, chiropractic, acupuncture Continue oxycodone 5mg 1-2 tablets daily for severe pain #60. May call for one refill prior to nextvisit.if we cannot find an indication for pain, would then recommend taper in upcoming months Can use acetaminophen 500mg 1-2 tabs three times a day as needed to replace ibuprofen. Let's complete the MRI imaging, as GI, urology and Volumetric Weigher issues have been ruled out Follow up in 2 months in person VICE PRESIDENT LENDING: Reviewed today, no concerns noted. The patient understands the plan and all questions were addressed during discussion. Marla Sprague APRN, TARYN Pain Management * Mary Jo Mcneil MA - 04/04/2024 9:45 AM CDT Before we can start this telephone/video visit, the patient verbally consents to the following: Patient name and date of : confirmed You understand this is a virtual/video visit: yes Physical location of patient in case of emergency: Home The telehealth visit will be billed to their insurance: bs As a reminder, the AMWELL number that your provider calls on is random and not monitored. If you have questions, please call the nurse line at [phone] option #2 documented in this encounter Plan of Treatment Upcoming Encounters Date Type Department Care Team (Late st Contact Info) Description 05/19/2024 9:15 AM CDT Appointment [facility] [address] [place] [phone] Marla Sprague APRN, BOX STRAPPER [address] [place], [place] [id number] 05/31/2024 1:45 PM CDT Telemedicine [facility]JOB SUPERINTENDENT [address] [facility], [address] [place] [address] [place] [address] [facility] [address] [place], [place] [id number] documented as of this encounter Results * MR Lumbar Spine WO IV Cont (04/15/2024 11:44 AM CDT) Anatomical Region Laterality Modality Spine, L-Spine, Skeletal, MSK Ma gnetic Resonance 04/15/2024 11:2 1 AM CDT Impressions 04/17/2024 4:05 PM CDT INDICATION: low back pain ?? TECHNIQUE: Multiplanar multisequence MR imaging of the lumbar spine was performed without intravenous contrast. COMPARISON: ??None. ? FINDINGS: There are 5 lumbar-type vertebrae. Correlation with this numbering system is recommended prior to any planned surgical intervention. Lumbar vertebral heights are preserved. No significant spondylolisthesis. Mild endplate irregularities primarily at L2 and L3. Intervertebral disc heights appear preserved. Distal spinal cord is unremarkable. Mild degenerative changes of the SI joints. T12-L1: No significant canal or foraminal narrowing. L1-2: No significant canal or foraminal narrowing. L2-3: No significant canal or foraminal narrowing. L3-4: Mild facet arthropathy. No significant canal or foraminal narrowing. L4-5: Minimal central disc bulge. Mild facet arthropathy. No significant canal or foraminal narrowing. ?? L5-S1: Small central disc bulge slightly eccentric to the left. Mild facet arthropathy. No significant canal or foraminal narrowing. IMPRESSION: ?? 1. No acute fracture or spondylolisthesis. 2. No significant spinal canal stenosis or neural foraminal narrowing. Comment: Many lumbar spine MRI findings are so common that while we may have reported their presence, they must be interpreted with caution and in the context of the clinical situation. The frequency of these findings in adults WITHOUT low back pain increases with age and are as follows: disk degeneration (37-96%), disk height loss (24-84%), disk bulge (30-84%), disk protrusion (29-43%), annular fissure (19- 29%), and facet degeneration (4-83%). Frequency percentages adapted from Alison W, Marni PH, Adriel B, et al. AJNR AM J Neuroradiol 2015:36:811-16. Narrative Procedure Note Stanley Browning MD - 04/17/2024 IMPRESSION INDICATION: low back pain TECHNIQUE: Multiplanar multisequence MR imaging of the lumbar spine wasperformed without intravenous contrast. COMPARISON: None. FINDINGS: There are 5 lumbar-type vertebrae. Correlation with this numbering systemis recommended prior to any planned surgical intervention. Lumbarvertebral heights are preserved. No significant spondylolisthesis. Mildendplate irregularities primarily at L2 and L3. Intervertebral discheights appear preserved. Distal spinal cord is unremarkable. Milddegenerative changes of the SI joints. T12-L1: No significant canal or foraminal narrowing. L1-2: No significant canal or foraminal narrowing. L2-3: No significant canal or foraminal narrowing. L3-4: Mild facet arthropathy. No significant canal or foraminal narrowing. L4-5: Minimal central disc bulge. Mild facet arthropathy. No significantcanal or foraminal narrowing. L5-S1: Small central disc bulge slightly eccentric to the left. Mild facetarthropathy. No significant canal or foraminal narrowing. IMPRESSION: 1. No acute fracture or spondylolisthesis. 2. No significant spinal canal stenosis or neural foraminal narrowing. Comment: Many lumbar spine MRI findings are so common that while we mayhave reported their presence, they must be interpreted with caution and inthe context of the clinical situation. The frequency of these findings inadults WITHOUT low back pain increases with age and are as follows: diskdegeneration (37-96%), disk height loss (24-84%), disk bulge (30-84%),disk protrusion (29-43%), annular fissure (19- 29%), and facet degeneration(4-83%). Frequency percentages adapted from Alison W, [place] PH, Adriel B, etal. AJNR AM J Neuroradiol 2015:36:811-16. Marla Sprague MATCHER, BOX STRAPPER RAD MRI * MR Thoracic Spine WO IV Cont (04/15/2024 11:21 AM CDT) Anatomical Region Laterality Modality Spine, T-Spine, L-Spine, C-Spine, Skeletal, MSK Magnetic Resonance 04/15/2024 10:5 3 AM CDT Impressions 04/17/2024 4:01 PM CDT INDICATION: back pain ?? TECHNIQUE: Multiplanar multisequence MR imaging of the thoracic spine was performed without intravenous contrast. COMPARISON: ??None. ? FINDINGS: ?? Thoracic vertebral heights are preserved. No significant spondylolisthesis. No significant spinal canal stenosis or neural foraminal narrowing. Normal spinal cord signal and caliber. IMPRESSION: ?? 1. No acute fracture or spondylolisthesis. 2. No significant spinal canal stenosis. Narrative Procedure Note Stanley Browning MD - 04/17/2024 IMPRESSION INDICATION: back pain TECHNIQUE: Multiplanar multisequence MR imaging of the thoracic spine wasperformed without intravenous contrast. COMPARISON: None. FINDINGS: Thoracic vertebral heights are preserved. No significantspondylolisthesis. No significant spinal canal stenosis or neuralforaminal narrowing. Normal spinal cord signal and caliber. IMPRESSION: 1. No acute fracture or spondylolisthesis. 2. No significant spinal canal stenosis. Marla Sprague APRN, CNP RAD MRI documented in this encounter Visit Diagnoses Diagnosis Chronic bilateral low back pain without sciatica- Primary Mid back pain Backache, unspecified BHAVESH (generalized anxiety disorder) ([facility]) Generalized anxiety disorder LLQ pain Abdominal pain, left lower quadrant Chronic, continuous use of opioids Chronic bilateral low back pain without sciatica Mid back pain Backache, unspecified Chronic bilateral low back pain without sciatica Mid back pain Backache, unspecified documented in this encounter Care Teams Biological Science Technician Fish Relationship Specialty Start Date End Date Dima Shah APRN, TARYN [address] [place] [address] PCP - General Nurse Practitioner 08/05/23 documented as of this encounter
--- OUTSIDE RECORDS SUMMARY | 2024-05-12 03:26 | XMS_ITS | Encounter Summary ---
Author Organization [facility] Address [address] [address] Care Team Providers Care Stock Clerk Self Service Store Name Role Phone Dima Shah APRN, DESK SERGEANT Primary Care Provide r Reason for Visit * Procedure/Equipment (Routine) - Incomplete Specialty Diagnoses / Procedures Referred By Contac t Referred To Contact Diagnoses Chronic bilateral low back pain without sciatica Mid back pain Procedures MR Lumbar Spine WO IV Cont Marla Sprague APRN, DESK SERGEANT [address] [place] [address] Referral ID Status Reason Start Date Expiration Date V isits Requested Visits Authorized [id number] Incomplete 04/04/2024 07/04/2025 1 1 Encounter Details Date Type Department Care Team (Latest Contact Info) Description 04/15/2024 11:30 AM CDT Ancillary Procedure [facility] [address] [place], [place] [id number] Marla Sprague APRN, DESK SERGEANT [address] [place] [address] Chronic bilateral low back pain without sciatica; Mid back pain Social History Tobacco Use Types Packs/Day [...] Info) Description 05/19/2024 9:15 AM CDT Appointment [facility] [address] [place] [address] Marla Sprague APRN, DESK SERGEANT [address] [place] [address] 05/31/2024 1:45 PM CDT Telemedicine [facility]-COMMERCIAL PROPERTY ADMINISTRATOR [address] [facility], [address] [place] [phone] [place] [address] [place], [place] [phone] documented as of this encounter Procedures Procedure Name Priority Date/Time Associated Diagnosis Comments MR LUMBAR SPINE WO IV CONT Routine 04/15/2024 11:44 AM CDT Chronic bilateral low back pain without sciatica Mid back pain documented in this encounter Results * MR Lumbar Spine [...] degeneration(4-83%). Frequency percentages adapted from Alison W, Marni PH, Adriel B, etal. AJNR AM J Neuroradiol 2015:36:811-16. Marla Sprague APRN, CNP RAD MRI documented in this encounter Visit Diagnoses Diagnosis Chronic bilateral low back pain without sciatica Mid back pain Backache, unspecified documented in this encounter Care Teams Stock Clerk Self Service Store Relationship Specialty Start Date End Date Dima Shah APRN, DESK SERGEANT [address] [place] [address] PCP - General Nurse Practitioner 08/05/23 documented as of this encounter
--- OUTSIDE RECORDS SUMMARY | 2024-05-12 03:26 | XMS_ITS | Referral Summary ---
Author Organization [facility] Address [address] [place] [address] Care Team Providers Care Catalogue Librarian Name Role Phone [facility], [facility] Primary Care Pr ovider Allergies No known active allergies Medications Medication Sig Dispensed Refills Start Date End Date Status PHENTERMINE HCL PO Active oxyCODONE (ROXICODONE) 5 MG tablet Take 1 tablet (5 mg) by mouth every 6 hours as needed for pain 6 tablet 11/06/2020 Active oxyCODONE-acetaminop hen (PERCOCET) 5-325 MG tablet Take 1-2 tablets by mouth every 4 hours as needed for pain 12 tablet 11/25/2021 Active ketorolac (TORADOL) 10 MG tablet Take 1 tablet (10 mg) by mouth every 6 hours as needed for moderate pain 20 tablet 06/24/2022 Active Active Problems Problem Noted Date Diagnosed Date Acute pyelonephritis 05/03/2018 Nephrolithiasis 05/01/2018 Immunizations Name Administration Dates Next Due TDAP Vaccine (Adacel) 11/06/2016 Social History Tobacco Use Types Packs/Day Years Used Date Smoking Tobacco: Some Days Cigarettes Smokeless Tobacco: Never Comments:5-10 cigs per day Alcohol Use Standard Drinks/Week Comments Yes 0 (1 standard drink = 0.6 oz pur e alcohol) 2x/week Adolescent Education Answer Date Record ed Getting School Help Needed Not on file 08/26 Sex and Gender Information Value Date Recorded Sex Assigned at Not on file Gender Identity Not on file Sexual Orientation Not on file Last Filed Vital Signs Vital Sign Reading Time Taken Comments Blood Pressure 142/87 01/18/2023 8:14 PM SCIENTIFIC DATABASE CURATOR Pulse 98 01/18/2023 8:14 PM SCIENTIFIC DATABASE CURATOR Temperature 36.7 ??C (98 ??F) 01/18/2023 10:59 AM SCIENTIFIC DATABASE CURATOR Respiratory Rate 16 01/18/2023 8:14 PM SCIENTIFIC DATABASE CURATOR Oxygen Saturation 98% 01/18/2023 8:14 PM SCIENTIFIC DATABASE CURATOR Inhaled Oxygen Concentration - - Weight 113.4 kg (250 lb) 11/25/2021 1:27 PM SCIENTIFIC DATABASE CURATOR Height 167.6 cm (5' 5.98) 05/18/2018 1:18 PM CD T Body Mass Index 40.37 05/18/2018 1:18 PM CDT Plan of Treatment Not on file Medical Devices Explanted Type Area Workgroup Leader Device Identifier Shelf Expiration Date Model / Serial / Lot Stent Ureteral Percuflex Plus [id number] Explanted:Qty: 1 on 05/02/2018 by Arnoldo Kimble MD at [facility] Stent [employer] 10/27/2020 [id number] / / Stent Ureteral Percuflex Plus [id number] Implanted:Qty: 1 on 05/02/2018 by Arnoldo Kimble MD at [facility] Explanted:Qty: 1 on 05/18/2018 at [facility] Stent Left: Ureter [employer] 12/07/2020 [id number] / / [id number] Procedures Procedure Name Priority Date/Time Associated Diagnosis Comments BASIC METABOLIC PANEL STAT 01/18/2023 11:00 AM SCIENTIFIC DATABASE CURATOR from Last 3 Months or Most Recently Relevant to Health Maintenance Results * (ABNORMAL) Basic metabolic panel (BMP) (01/18/2023 11:00 AM SCIENTIFIC DATABASE CURATOR) Sodium 141 136 - 145 mmol/L 01/18/2023 11:28 AM SCIENTIFIC DATABASE CURATOR [facility] Potassium 3.6 3.4 - 5.3 mmol/L 01/18/2023 11:28 AM [facility] Chloride 104 98 - 107 mmol/L 01/18/2023 11:28 AM [facility] Carbon Dioxide (CO2) 25 22 - 29 mmol/L 01/18/2023 11:28 AM [facility] Anion Gap 12 7 - 15 mmol/L 01/18/2023 11:28 AM [facility] Urea Nitrogen 14.3 6.0 - 20.0 mg/dL 01/18/2023 11:28 AM SCIENTIFIC DATABASE CURATOR LAB[facility] Creatinine 0.79 0.51 - 0.95 mg/dL 01/18/2023 11:28 AM SCIENTIFIC DATABASE CURATOR LABORATORY Calcium 9.2 8.6 - 10.0 mg/dL 01/18/2023 11:28 AM [facility] Glucose 110(H) 70 - 99 mg/dL 01/18/2023 11:28 AM SCIENTIFIC DATABASE CURATOR LABOR[facility]ORY GFR Estimate >90 >60 mL/min/1.7 3m2 01/18/2023 11:28 AM SCIENTIFIC DATABASE CURATOR LABORATORY Comment:eGFR calculated usin 2020 CKD-EPI equation. Blood BLOOD SPECIMEN / Unknown Venipuncture / Unknown 01/18/2023 11:00 AM SCIENTIFIC DATABASE CURATOR 01/18/2023 11:09 AM SCIENTIFIC DATABASE CURATOR Chioma Carson PA-C LAB - BLOOD ORDER [facility] [address] (1st floor, no room number) [place] [address] [phone] from Last 3 Months or Most Recently Relevant to Health Maintenance Advance Directives For more information, please contact: [phone] * Full Code (Latest Code Status on File) Date Activated Date Inactivated Comments 05/03/2018 11:59 AM 03/07/2020 5:07 PM * Full Code Date Activated Date Inactivated Comments 05/01/2018 11:05 PM 05/03/2018 11:59 AM Care Teams Catalogue Librarian Relationship Specialty Start Date End Date [facility], [facility] [address] [place] [address] [facility] - General 04/27/23
--- OUTSIDE RECORDS SUMMARY | 2024-05-12 03:26 | XMS_ITS | Clinical Summary ---
Author Organization [facility] Address [place], [place] [address] Care Team Providers Care Service Dismantler Name Role Phone Pcp, No Primary Care Provider Unavailabl e Allergies No known active allergies Medications Medication Sig Dispensed Refills Start Date End Date Status levonorgestrel intrauterine device (MIRENA) 20 mcg/24 hr IUD Inject 1 Device intrauterine one time. 1 Device 0 02/19/2011 Active ibuprofen (ADVIL; MOTRIN) 200 mg tablet Take 2 tablets by mouth every 6 hours if needed. 0 05/15/2011 Active HYDROcodone-ibupro fen, 7.5-200 mg, (VICOPROFEN) 7.5-200 mg per tabletIndications: Pelvic pain in female Take 1 tablet by mouth every 4 hours if needed for Pain. Max 5 tablets per 24 hrs 60 tablet 0 05/29/2011 Active dicyclomine (BENTYL) 10 mg capsuleIndications :Pelvic pain in female Take 1 capsule by mouth 4 times daily before meals and at bedtime. 30 capsule 2 05/29/2011 Active oxyCODONE-acetamin ophen, 5-325 mg, (PERCOCET) 5-325 mg per tabletIndications: Abdominal pain, right lower quadrant Take 1 tablet by mouth every 4 hours if needed for Pain. Max acetaminophen dose: 4000mg in 24 hrs. 20 tablet 0 06/03/2011 Active norethindrone, Contraceptive, (MICRONOR, 28,) 0.35 mg tabletIndications: Abdominal pain, right lower quadrant Take 1 tablet by mouth once daily. 3 Package 3 06/03/2011 Active Active Problems Problem Noted Date Diagnosed Date Kidney stones 08/29/2010 Resolved Problems Problem Noted Date Diagnosed Date Resolved Date Supervision of other normal 05/09/2009 05/13/2010 Immunizations Name Administration Dates Next Due Influenza, IIV3 (Age >=3 years) 09/16/2009 Td (Age >=7 Years) 10/29/2003 Social History Tobacco Use Types Packs/Day Years Used Date Smoking Tobacco: Every Day Cigarettes Smokeless Tobacco: Never Alcohol Use Standard Drinks/Week Comments No 0 (1 standard drink = 0.6 oz pur e alcohol) Sex and Gender Information Value Date Recorded Sex Assigned at Not on file Gender Identity Not on file Sexual Orientation Not on file Obstetrics History Para Term AB IAB SAB Ectopic Multiple Livin g Live Births 3 2 2 0 1 1 2 Date Outcome GA Total Labor Labor/2nd/3rd Weight Sex Type Anes PTL Roxanne A1 A5 Name Clin 1998 Term 41w 0d 3h 00m/ 3.88 kg (8 lb 9 oz) M Vag None Bambi as Delivery Location:[place] Comments: contr actions at 26 weeks 2005 SAB 13w 0d Miscar riage Comments:D and C 2008 Term 37w 5d 18h 00m/ 3.63 kg (8 lb) M Vag Epidur al Labens ki Delivery Location:[place] Comments:OA Last Filed Vital Signs Vital Sign Reading Time Taken Comments Blood Pressure 99/56 08/06/2023 11:50 AM CDT Pulse 58 08/06/2023 11:50 AM CDT Temperature 36.3 ??C (97.3 ??F) 08/06/2023 9:16 AM CD T Respiratory Rate 18 08/06/2023 9:16 AM CDT Oxygen Saturation 100% 08/06/2023 11:50 AM CDT Inhaled Oxygen Concentration - - Weight 72.6 kg (160 lb) 08/06/2023 9:15 AM CDT Height 167.6 cm (5' 6) 08/06/2023 9:15 AM CDT Body Mass Index 25.82 08/06/2023 9:15 AM CDT Plan of Treatment Health Maintenance Due Date Last Done Comments Tdap 1993 Depression screening for age 12+ 1994 BMI (ht and wt on same day) for age 18+ 2000 Hepatitis C screening for ag e 18-79 2000 Tetanus booster 10/29/2013 10/29/2003 Pap test for age 21-65 05/29/2014 05/29/2011 COVID-19 vaccine series ( season) 2023 Influenza for age 9-49 07/30/2024 09/16/2009 HIV for age 15-65 Completed 11/27/2008 Pneumococcal series for age 6-64 Aged Out No longer eligible based on patient's age to complete this topic Procedures Procedure Name Priority Date/Time Associated Diagnosis Comments ENGINEERING TEAM SUPERVISOR THIN PREP PAP SCREEN IMAGED Routine 05/29/2011 4:40 PM CDT Screening for malignant neoplasm of the cervix ANTI HIV 1/2 Routine 11/27/2008 Supervision of Other Normal from Last 3 Months or Most Recently Relevant to Health Maintenance Results * ENGINEERING TEAM SUPERVISOR THIN PREP PAP SCREEN IMAGED (05/29/2011 4:40 PM CDT) CYTOLOGY CYTOPATHOLOGY REPORT [facility] Status: Final Status ?[id number] CLINICAL INFORMATION Last Date of LMP ? :04/29/11 Last Pap Date ?:2008 Last Pap Result ?:NIL ABN [place]/Bx Past 5 YRS :None Hormone Usage ?:BCP/OCP/Patch/R ing Menstrual Status ? :Irregular Periods [place]/Bx done today ? :No Additional Information :Has Meriana IUD HPV Request ?:HPV if ASCUS SPECIMEN SOURCE ?:Cervical/vagina l ThinPrep Vial, screening SPECIMEN ADEQUACY ?:Satisfactory for evaluation Endocervical component ? present. INTERPRETATION/RES ULT Negative for intraepithelial lesion or malignancy (NIL) Non-Neoplastic Findings Parakeratosis Organisms ??Shift in triston suggestive of bacterial vaginosis Cytology 1st Screener ??:sag Signed by ?: ??Jim Her M.D. This specimen was screened by the FDA approved ThinPrep Imaging System and manually reviewed. NOTE: ??The Pap test is a screening technique, not a diagnostic procedure. ??It is used ??primarily to screen for squamous cancers and precursor lesions. ??Published studies have shown that it is subject to both false negative and false positive results. ??The pap test should not be used as the sole means to diagnose or exclude pre-malignant and malignant lesions. COLLECTED:05/29/11 ? ACCESSIONED: ??06/02/11 ?? SIGNED: ??06/08/11 [facility] PAP [place] CODE NIL [facility] Cervical/Vaginal (Cervical/Vagina l) 05/29/2011 4:40 PM CDT 05/29/2011 4:39 PM CDT Paty Bowers MD PATHOLOGY/CYTOLOGY [facility] [place]NAL ZIP [address] [place] [id number] * (ABNORMAL) ANTI HIV 1/2 (11/27/2008) ANTI HIV 1/2 non reactive(E XTERNAL) Blood specimen (specimen) BLOOD SPECIMEN / Unknown 11/27/2008 Chayo Gonzalez MD SEND OUTS from Last 3 Months or Most Recently Relevant to Health Maintenance Care Teams Service Dismantler Relationship Specialty Start Date End Date Pcp, No . PCP - General 02/29/12
--- OUTSIDE RECORDS SUMMARY | 2024-05-12 03:26 | XMS_ITS | Encounter Summary ---
Author Organization [facility] Address [address] [place] [address] Care Team Providers Care Controller Operations And Hr Manager Name Role Phone Dima Shah APRN, PLATE FITTER Primary Care Provide r Reason for Referral * Consult/Transfer Care (Routine) - New Request Specialty Diagnoses / Procedures Referred By Continés t Referred To Contact Diagnoses Chronic pain syndrome PTSD (post-traumatic stress disorder) ([facility]) Left flank pain Left sided abdominal pain Radha Higgins APRN, PLATE FITTER [address] [place] [address] Referral ID Status Reason Start Date Expiration Date V isits Requested Visits Authorized [id number] New Request 05/11/2024 08/10/2025 1 1 Scheduling Instructions Your clinician has recommended an appointment with Behavioral Health. You may call [phone] to schedule your appointment. This recommended service/s may not be covered by your health plan (health insurance). To find out your specific benefit coverage, please call the number on your insurance card.?? Please note that in order to maintain access for all patients, Behavioral Health does have a late cancellation policy. In order to avoid being restricted from scheduling future appointments in Behavioral Health you will need to cancel at least 24 hours in advance. We request you that you arrive 30 minutes before your first appointment to complete paperwork. Question Answer Appointment Urgency? Non-Urgent Reason for request? Pain clinic patient Requested Services? Therapy/Counseling Pt aware and agrees to this order: Confirmed with patient Comments Pain clinic patient: please have patient schedule with Aex Rodríguez or Madeline Stewatr Reason for Visit * Reason Comments Follow-up Pain ( worsening dali n over last 2 weeks) Encounter Details Date Type Department Care Team (Late st Contact Info) Description 05/11/2024 7:15 AM CDT Telemedicine [place] [address] [facility] [address] [place] [address]. [place], [place] [id number] Radha Higgins APRN, CNP [address] [place] [phone] Chronic pain syndrome (Primary Dx); PTSD (post-traumatic stress disorder) ([facility]); Left flank pain; Left sided abdominal pain; Chronic, continuous use of opioids Social [...] as of this encounter Progress Notes * Radha Higgins APRN, CNP - 05/11/2024 7:15 AM CDTAddended by: RADHA HIGGINS on: 05/11/2024 09:36 AM Modules accepted: Orders * Dianne Adame RN - 05/11/2024 7:15 AM CDT Before we can start this telephone/video visit, the patient verbally consents to the following: Patient name and date of : confirmed You understand this is a virtual/video visit: reports understanding Physical location of patient in case of emergency: home address on file The telehealth visit will be billed to their insurance: confirmed As a reminder, the [facility] number that your provider calls on is random and not monitored. If you have questions, please call the nurse line at [phone] option #2 * Radha Higgins APRN, TARYN - 05/11/2024 7:15 AM CDT This visit was completed as [...] for evaluation regarding chronic pain Pain location: left abdomen, specifically in the left flank Pain Severity: 10/10 currently, only goes down to 3/10 Timing: constant Quality: sharp/stabbing Trend: getting worse in past 2 weeks Aggravated by nothing she can determine, maybe being too active Improved by oxycodone only Associated symptoms: denies numbness and tingling , denies weakness , Denies any spinal related bowel or bladder changes. Treatment has included: started Pelvic PT PRIOR TREATMENTS: Ultrasound, Heat, and Medications PRIOR INJECTIONS: N/A PRIOR MEDICATIONS: Tylenol, Biofreeze, castor oil, Toradol, ibuprofen, amitriptyline-didn't help, hydrocodone, tizanidine trial-wasn't helpful for pain CURRENT PAIN TREATMENTS -Tylenol -oxycodone trial -Medical cannabis-didn't like the effects Tiara Agee is a 43 y.o. with chronic left lower quadrant abdominal pain. *Unclear etiology - has seen ObGyn and GI, urology, MRI imaging negative, inflammatory labs negative. *Not diabetic. *No blood thinners. * 10/22/23 - Tiara is on a journey to find a definitive cause of her pain. We discussed continuing opioids in the short term, but that even if a definitive cause of pain is not found, would not recommend continuing opioids intermediate card tender. Tiara was a patient of Tiara Hollingsworth that I started to see while she was on leave. She reports that in the past 2 weeks, she has noted severe pain that is the worst 2 weeks she has ever had since this started last April 2023. Previously saw urology on 01/12/2024 and they had done some imaging and urology did not believe the pain was from the ureter. She does have a history of ureter surgery for a blocked ureter in 2017. CTurogram that was negative. CT was negative for stones in the past. Urology has recommended Pelvic floor PT. She was seen by [facility] for follow up as the thought of the pain was endometriosis. They took out the IUD and started norethindrone and told her it would take 3-4 weeks to note relief. After 8 weeks she had no change to her pain. She was recommended to follow up with [facility] if the medication didn't w ork. She had seen GI for a video visit in fall 2022. Previously had 2 CT scans and colonoscopy +EGD havenot shown a source for this pain. I had recommended she complete MRI of lumbar spine that showed mild arthritis and a mild disc bulge. Thoracic MRI was normal. She has been using the oxycodone QID instead of the prescribed BID prn due to the increase in pain.She would like to be able to use some other medications. She has not used any in 2 days, and does like the clear head she has She isn't using the medical cannabis currently as she doesn't like the feeling unclear. ROS: Denies any new GI, , ENT, Vision, Abdominal pain, headache, breathing difficulty, fevers, fatigue, weight changes, edema, or chest pain. SOCIAL HISTORY Marital status: Engaged Occupation: Stay at home mom Tobacco use: Former Alcohol use: No Drug use: No History of substance use disorder treatment: No Medications: Reviewed in [facility] Allergies: Reviewed in [facility] Past medical, surgical and social history: Reviewed in [facility] Physical Examination: vital signs There were no vitals taken for this visit. Physical Exam Constitutional: Appearance: Normal appearance. Pulmonary: Effort: Pulmonary effort is normal. Neurological: General: No focal deficit present. Mental Status: She is alert and oriented to person, place, and time. Mental status is at baseline. Psychiatric: Mood and Affect: Mood normal. Behavior: Behavior normal. Thought Content: Thought content normal. Judgment: Judgment normal. Assessment: ICD-10-CM 1. Chronic pain syndrome G89.4 Behavioral Health oxyCODONE (ROXICODONE) 5 MG immediate release tablet 2. PTSD (post-traumatic stress disorder) ([facility]) F43.10 Behavioral Health 3. Left flank pain R10.9 Behavioral Health 4. Left sided abdominal pain R10.9 Behavioral Health 5. Chronic, continuous use of opioids F11.90 Plan: Plan for Pelvic PT as scheduled Pain psychology referral Continue oxycodone 5mg 1-2 tablets daily for severe pain #20, she is out 12 days early, will refill#20, but have discussed that this medication is not to be used more often particularly in light of no known cause of her pain, all works ups have been benign to date Start gabapentin 300mg 1 tab at bedtime x 5 days, the bid x5 days, then tid Can use acetaminophen 500mg 1-2 tabs three times a day as needed to replace ibuprofen. Recommend follow up with [facility] Could consider a second opinion with urology Follow up in 2 weeks FOOD SERVICE AIDE: Reviewed today, no concerns noted. The patient understands the plan and all questions were addressed during discussion. *note, pharmacy would not fill with BID sig, so changed to q8 hour prn, but can only use 2/day Radha Higgins APRN, CNP Pain Management documented in this encounter Plan of Treatment Upcoming Encounters Date Type Department Care Team (Late st Contact Info) Description 05/19/2024 9:15 AM CDT Appointment [facility] [address] [place] [phone] Radha Higgins APRN, CNP [address] [place] [address] 05/31/2024 1:45 PM CDT Telemedicine [facility]DEC[facility] SCIENCE ANALYST [address] [facility], [address] [place] [phone] [place] [address] [place] [address] [place] [phone] Scheduled Referrals Name Type Priority Associated Diagnoses Orde r Schedule Behavioral Health Referral Routine Chronic pain syndrome PTSD (post-traumatic stress disorder) ([facility]) Left flank pain Left sided abdominal pain Ordered: 05/11/2024 documented as of this encounter Visit Diagnoses Diagnosis Chronic pain syndrome- Primary PTSD (post-traumatic stress disorder) ([facility]) Posttraumatic stress disorder Left flank pain Abdominal pain, unspecified site Left sided abdominal pain Abdominal pain, unspecified site Chronic, continuous use of opioids documented in this encounter Care Teams Controller Operations And Hr Manager Relationship Specialty Start Date End Date Dima Shah, ANALYSIS CONSULTANT, PLATE FITTER [address] [place] [address] PCP - General Nurse Practitioner 08/05/23 documented as of this encounter
--- OUTSIDE RECORDS SUMMARY | 2024-05-12 03:26 | XMS_ITS | Clinical Summary ---
Author Organization [place] Address [address] [place] [address] Care Team Providers Care Director Global Development Name Role Phone [facility], [facility] Pr ovider Allergies No [...] Comments Blood Pressure 142/87 01/18/2023 8:14 PM CABLE TV INSTALLER Pulse 98 01/18/2023 8:14 PM CABLE TV INSTALLER Temperature 36.7 ??C (98 ??F) 01/18/2023 10:59 AM CABLE TV INSTALLER Respiratory Rate 16 01/18/2023 8:14 PM CABLE TV INSTALLER Oxygen Saturation 98% 01/18/2023 8:14 PM CABLE TV INSTALLER Inhaled Oxygen Concentration - - Weight 113.4 kg (250 lb) 11/25/2021 1:27 PM CABLE TV INSTALLER Height 167.6 cm (5' 5.98) 05/18/2018 1:18 PM CD T Body Mass Index 40.37 05/18/2018 1:18 PM CDT Plan of Treatment Health Maintenance Due Date Last Done Comments ADVANCE CARE PLANNING 1982 ANNUAL REVIEW OF HM ORDERS 1982 MAMMO SCREENING 1982 HIV SCREENING 1997 HEPATITIS C SCREENING 2000 PAP 2003 Pneumococcal Vaccine: Pediatrics (0 to 5 Years) and At-Risk Patients (6 to 64 Years) (2 of 2 - PCV) 05/19/2020 05/19/2019 YEARLY PREVENTIVE VISIT 05/19/2020 05/19/20 19, 07/20/2018, 06/16/2000, Additional history exists LIPID 2022 COVID-19 Vaccine ( season) 2023 PHQ-2 (once per calendar year) 2023 INFLUENZA VACCINE (Season Ended) 2024 11/24/2011, 11/24/2011, 09/16/2009 GLUCOSE 01/18/2026 01/18/2023, 05/30, 12/03/2021, Additional history exists DTAP/TDAP/TD IMMUNIZATION (9 - Td or Tdap) 11/06/2026 11/06/2016, 07/08/2011, 07/01/2011, Additional history exists IPV IMMUNIZATION Completed 07/25/1987, , 02/10/1983, Additional history exists HEPATITIS B IMMUNIZATION Completed 995, 06/18/1995, 05/21/1995 HPV IMMUNIZATION Aged Out No longer e ligible based on patient's age to complete this topic MENINGITIS IMMUNIZATION Aged Out No l onger eligible based on patient's age to complete this topic RSV MONOCLONAL ANTIBODY Aged Out No l onger eligible based on patient's age to complete this topic Medical Devices Explanted Type Area Supervisor Stone Device Identifier Shelf Expiration Date Model / Serial / Lot Stent Ureteral Percuflex Plus [id number] Explanted:Qty: 1 on 05/02/2018 by Arnoldo Kimble MD at [facility] Stent [employer] 10/27/2020 [id number] / / Stent Ureteral Percuflex Plus [id number] Implanted:Qty: 1 on 05/02/2018 by Arnoldo Kimble MD at [facility] Explanted:Qty: 1 on 05/18/2018 at [facility] Stent Left: Ureter [employer] 12/07/2020 [id number] / / [id number] Procedures Procedure Name Priority Date/Time Associated Diagnosis Comments BASIC METABOLIC PANEL STAT 01/18/2023 11:00 AM CABLE TV INSTALLER from Last 3 Months or Most Recently Relevant to Health Maintenance Results * (ABNORMAL) Basic metabolic panel (BMP) (01/18/2023 11:00 AM CABLE TV INSTALLER) Sodium 141 136 - 145 mmol/L 01/18/2023 11:[address] [facility] Potassium 3.6 3.4 - 5.3 mmol/L 01/18/2023 11:[address] [facility] Chloride 104 98 - 107 mmol/L 01/18/2023 11:[address] [facility] Carbon Dioxide (CO2) 25 22 - 29 mmol/L 01/18/2023 11:[address] [facility] Anion Gap 12 7 - 15 mmol/L 01/18/2023 11:[address] [facility] Urea Nitrogen 14.3 6.0 - 20.0 mg/dL 01/18/2023 11:[address] [facility] Creatinine 0.79 0.51 - 0.95 mg/dL 01/18/2023 11:[address] [facility] Calcium 9.2 8.6 - 10.0 mg/dL 01/18/2023 11:[address] [facility] Glucose 110(H) 70 - 99 mg/dL 01/18/2023 11:[address] [facility] GFR Estimate >90 >60 mL/min/1.7 3m2 01/18/2023 11:[address] [facility] Comment:eGFR calculated usin g 2020 CKD-EPI equation. Blood BLOOD SPECIMEN / Unknown Venipuncture / Unknown 01/18/2023 11:00 AM CABLE TV INSTALLER 01/18/2023 11:09 AM CABLE TV INSTALLER Chioma Carson PA-C LAB - BLOOD ORDER [facility] [address] (1st floor, no room number) [place] [address], [facility] [phone] from Last 3 Months or Most Recently Relevant to Health Maintenance Advance Directives For more information, please contact: [phone] * Full Code (Latest Code Status on File) Date Activated Date Inactivated Comments 05/03/2018 11:59 AM 03/07/2020 5:07 PM * Full Code Date Activated Date Inactivated Comments 05/01/2018 11:05 PM 05/03/2018 11:59 AM Care Teams Director Global Development Relationship Specialty Start Date End Date Clinic, [facility] [address] [place] [address] PCP - General 04/27/23
--- OUTSIDE RECORDS SUMMARY | 2024-05-12 03:26 | XMS_ITS | Clinical Summary ---
[facility] Organization [facility] Address [address] [place] [address] Care Team Providers Care Final Inspector Motorcyles Name Role Phone Dima Shah APRN, TARYN Primary Care Provide r Source Comments You are receiving this document as you are listed as the primary care provider,follow-up provider, or the patient has been referred to you for consultation.This is in compliance with the Medicare and[facility] EHR Incentive Program,which states Providers who transition their patient to another setting of careor provider of care or refers their patient to another provider of care shouldprovide summary care record for each transition of care or referral. [facility] No known active allergies Medications Medication Sig Dispensed Refills Start Date End Date Status Multiple Vitamin (MULTIVITAMINS OR) Active ibuprofen (MOTRIN) 800 MG tabletIndications: LLQ pain Take 1 Tablet (800 mg) by mouth three times a day. 50 Tablet 3 3 Active dicyclomine (BENTYL) 10 MG capsule Take 1-2 Capsules (10-20 mg) by mouth 4 times daily before meals and at bedtime. 120 Capsule 11 3 Active Additional Information Patient not taking.Reported on 04/04/2024 medical cannabis patient certifiedIndicatio ns:Chronic abdominal pain Take as instructed .. Active norethindrone (AYGESTIN) 5 MG tablet Take 1 Tablet (5 mg) by mouth daily. 90 Tablet 3 4 Active Additional Information Patient not taking.Reported on 04/04/2024 ondansetron (ZOFRAN-ODT) 4 MG disintegrating tabletIndications: Nausea Take 0.5 Tablets (2 mg) by mouth every 8 hours as needed for Nausea. 15 Tablet 1 4 Active gabapentin (NEURONTIN) 300 MG capsuleIndications :Neuropathic Pain Take 1 Capsule (300 mg) by mouth daily at bedtime for 5 days, THEN 1 Capsule (300 mg) two times a day for 5 days, THEN 1 Capsule (300 mg) three times a day. Indications: Neuropathic Pain. 165 Capsule 4 024 Active oxyCODONE (ROXICODONE) 5 MG immediate release tabletIndications: Chronic Pain Take 1 Tablet (5 mg) by mouth every 8 hours as needed for Pain. Indications: Chronic Pain 20 Tablet 4 Active oxyCODONE (ROXICODONE) 5 MG immediate release tabletIndications: Chronic Pain Take 1 Tablet (5 mg) by mouth two times daily as needed for Pain. Indications: Chronic Pain Do not start before March 24, 2024. 60 Tablet 4 024 Discontinued(*M ed change OR same med OR reorder, new dose/directions ) diazePAM (VALIUM) 5 MG tabletIndications: Chronic bilateral low back pain without sciatica,Mid back pain 5-10 mg po, Pt to bring with to appt. Do not take prior to arrival. MRI staff will instruct when to take med. 2 Tablet 4 024 Discontinued oxyCODONE (ROXICODONE) 5 MG immediate release tabletIndications: Chronic Pain Take 1 Tablet (5 mg) by mouth two times daily as needed for Pain. Indications: Chronic Pain Do not start before April 22, 2024. 60 Tablet 4 024 Discontinued(*M ed change OR same med OR reorder, new dose/directions ) tiZANidine (ZANAFLEX) 2 MG tablet Take 1-2 Tablets (2-4 mg) by mouth at bedtime as needed for Other. 4 024 Discontinued oxyCODONE (ROXICODONE) 5 MG immediate release tabletIndications: Chronic Pain Take 1 Tablet (5 mg) by mouth two times daily as needed for Pain. Indications: Chronic Pain 20 Tablet 4 024 Discontinued Active Problems Problem Noted Date Diagnosed Date Controlled substance agreement signed 10/22/2023 Overview: Diagnosis: Abdominal pain Medication: oxycodone 5mg BID PRN Controlled Substance Agreement reviewed and signed: Yes Date agreement signed: 10/22/2023 Refill plan: Follow up with pain clinic as recommended Clinician: Tiara Hollingsworth, EGG PACKER, HR GENERALIST LLQ pain 09/06/2023 Fatty liver 05/27/2022 Last Assessment & Plan: Incidentally noted hepatic steatosis 11/25/21 on ultrasound at [facility] PTSD (post-traumatic stress disorder) 06/23/2021 BHAVESH (generalized anxiety disorder) 03/21/2020 Cervical high risk HPV (human papillomavirus) te st positive 08/08/2018 Overview: [facility] Review: History: 12/2015: NILM HPV+ (other) 06/2018: NILM HPV+ (other) 04/2019: [place] neg 07/2023: NILM HPV neg Plan, per ASCCP guidelines: pap & HPV co-test in 3 years (2025) Nephrolithiasis 05/01/2018 Resolved Problems Problem Noted Date Diagnosed Date Resolved Date Overweight (BMI 25.0-29.9) 05/27/2022 1 12/22/2022 Obesity (BMI 30-39.9) 01/26/20222021 History of tobacco abuse 05/19/201905/2023 Encounter for Nexplanon removal 03/27/2016 12/03/2020 Abnormal vaginal bleeding 03/27/[address] 03/26/2016 6 Trigeminal neuralgia 11/26/2015 016 Chronic female pelvic pain 01/16/2011 0 01/27/2016 Chronic female pelvic pain 01/16/2011 0 12/03/2020 Kidney stones 08/29/2010 10/22/2023 Varicella 12/03/2020 Encounters Date Type Department Care Team Description 05/11/2024 1:00 PM CDT Office Visit [facility] [address] [phone] Radha Romo, PT Pelvic and perineal pain (Primary Dx); Left lower quadrant abdominal pain 05/11/2024 7:15 AM CDT Telemedicine [place] [address] [facility] [address] [place] [address]. [place] [address] Barnack Marla A, EGG PACKER, HR GENERALIST Chronic pain syndrome (Primary Dx); PTSD (post-traumatic stress disorder) (HRC); Left flank pain; Left sided abdominal pain; Chronic, continuous use of opioids 05/09/2024 Telephone [place] [address] [facility] [address] [place] [address]. [place] [address] Barnack Marla A, EGG PACKER, HR GENERALIST Medication Problems (Oxycodone) 05/05/2024 Telephone [place] [address] [facility] [address] [place] [address]. [place] [address] Barnack Marla A, EGG PACKER, HR GENERALIST UPDATE 04/19/2024 Refill [place] [address] [facility] [address] [place] [address]. [place] [address] Barnack, Marla A, EGG PACKER, HR GENERALIST Refill 04/15/2024 11:30 AM CDT Ancillary Procedure [facility] [address] [place] [address] Barnack, Marla A, EGG PACKER, HR GENERALIST Chronic bilateral low back pain without sciatica; Mid back pain 04/15/2024 11:00 AM CDT Ancillary Procedure [facility] [place] [address] [place] [address] Barnack, Marla A, EGG PACKER, HR GENERALIST Chronic bilateral low back pain without sciatica; Mid back pain 04/04/2024 9:45 AM CDT Telemedicine [place] [address] [facility] [address] [place] [address]. [place] [address] Barnack, Marla A, EGG PACKER, HR GENERALIST Chronic bilateral low back pain without sciatica (Primary Dx); Mid back pain; BHAVESH (generalized anxiety disorder) (HRC); LLQ pain; Chronic, continuous use of opioids 03/22/2024 Refill [facility] [address] [facility] [address] [place] [address]. [place] [address] Marla Sprague APRN, HR GENERALIST Refill 03/20/2024 9:15 AM CDT Office Visit [facility] [place] [address] [place] [address] Radha Romo PT Pelvic and perineal pain (Primary Dx); Left lower quadrant abdominal pain 02/23/2024 Refill [facility] [address] [place] [address]. [place] [address] Marla Sprague APRN, HR GENERALIST Refill 02/17/2024 1:30 PM CDT Lab Visit [facility] [address] [place] [address] LLQ pain; Night sweats; Nausea; Routine screening for STI (sexually transmitted infection); Arthralgia, unspecified joint 02/17/2024 11:30 AM CDT Office Visit [facility] [address] [place] [address] Dima Shah APRN, HR GENERALIST LLQ pain (Primary Dx); Nausea; Nonintractable headache, unspecified chronicity pattern, unspecified headache type; Arthralgia, unspecified joint; Weight loss; Night sweats; Chronic prescription opiate use; BHAVESH (generalized anxiety disorder) (HRC); Routine screening for STI (sexually transmitted infection) from Last 3 Months Immunizations Name Administration Dates Next Due DTP 07/25/1987, 4,04/03/1983,02/10/1983 ,1982 DTaP 07/01/2011 Flu Vac (3+ yrs) 09/16/2009 HepB Ped/Adol (0-18 yrs) 11/24/1995,06/18/1995,0 05/21/1995 Influenza LAIV (Nasal, 2-49 yrs) 11/24/2011 MMR 05/21/1995,01/13/1984 OPV, Trivalent (Orimune or tOPV) 07/25/1987,09/30,02/10/1983,1982 PPSV23 (Pneumovax) 05/19/2019 Td 10/29/2003,05/22/1996 Tdap 11/06/2016,07/08/2011 Family History Medical History Relation Name Comments Other Mother colon polyps, d iverticulosis hashimotos Maternal Aunt Cancer Maternal Grandfather colon c ancer Cancer Maternal Grandmother cervica l cancer Relation Name Status Comments Father Alive Mother Alive Brother Alive Maternal Aunt Maternal Grandfather Maternal Grandmother Paternal Grandfather Paternal Grandmother Sister 1 Alive Sister 2 Alive Social History Tobacco Use Types Packs/Day Years Used Date Smoking Tobacco: Former Cigarettes 0.5 19 Smokeless Tobacco: Never Tobacco Cessation:Counseling Given: Not Answered Alcohol Use Standard Drinks/Week Comments Not Currently 1 (1 standard drink = 0.6 oz pur e alcohol) occa. PHQ-2 Answer Date Recorded PHQ-2 Score 2 02/17/2024 Sex and Gender Information Value Date Recorded Sex Assigned at Not on file Gender Identity Not on file Sexual Orientation Not on file Last Filed Vital Signs Vital Sign Reading Time Taken Comments Blood Pressure 133/91 02/17/2024 11:50 AM CDT Pulse 110 02/17/2024 11:50 AM CDT Temperature 36.4 ??C (97.5 ??F) 02/17/2024 11:41 AM C DT Respiratory Rate 18 02/17/2024 11:41 AM CDT Oxygen Saturation 100% 12/07/2022 3:42 PM CONCRETE WORKER Inhaled Oxygen Concentration - - Weight 70.8 kg (156 lb) 02/17/2024 11:41 AM CDT Height 170 cm (5' 6.93) 02/17/2024 11:41 AM CDT Body Mass Index 24.48 02/17/2024 11:41 AM CDT Plan of Treatment Upcoming Encounters Date Type Department Care Team (Late st Contact Info) Description 05/19/2024 9:15 AM CDT Appointment [facility] [address] [place] [address] Marla Sprague, EGG PACKER, HR GENERALIST [address] [place], [place] [phone] 05/31/2024 1:45 PM CDT Telemedicine [facility]-PROPERTY OFFICER [address] [facility], [address] [place] [address] [place] [address] [place] [place], [place] [phone] Health Maintenance Due Date Last Done Comments Mammogram 1982 Adult Preventive Visit 05/19/2021 9, 07/20/2018, 06/16/2000, Additional history exists COVID-19 Vaccine ( season) 2023 Influenza (Season Ended) 2024 11/24/2011, 08/29 Cervical Cancer Screening 08/27/20262022, 05/22/2019, 07/20/2018, Additional history exists DTaP/Tdap/Td (9 - Tdap) 11/06/2026 11/06/20 16, 07/08/2011, 07/01/2011, Additional history exists Zoster/Shingles (1 of 2) 2032 IPV (Polio) Completed 07/25/1987, 09/30, 02/10/1983, Additional history exists HepB Completed 11/24/1995, 05/30, 05/21/1995 Pneumococcal Aged Out 05/19/2019 No longer eligi ble based on patient's age to complete this topic HIV Screening (Preventive Services) Completed 02/17/2024, 01/27/2016, 11/27/2008, Additional history exists Hep C Screening (Preventive Services) Completed 02/17/2024, 01/27/2016 HPV Vaccine Aged Out No longer eligi ble based on patient's age to complete this topic HepA Aged Out No longer eligi ble based on patient's age to complete this topic Hib Aged Out No longer eligi ble based on patient's age to complete this topic MCV4 Aged Out No longer eligi ble based on patient's age to complete this topic Procedures Procedure Name Priority Date/Time Associated Diagnosis Comments MR LUMBAR SPINE WO IV CONT Routine 04/15 11:44 AM CDT Chronic bilateral low back pain without sciatica Mid back pain MR THORACIC SPINE WO IV CONT Routine 11:21 AM CDT Chronic bilateral low back pain without sciatica Mid back pain HBSAG (HEPATITIS B SURFACE AG) Routine 02/17/2024 12:42 PM CDT Routine screening for STI (sexually transmitted infection) Night sweats Nausea TREPONEMA SCREEN Routine 02/17/2024 12:42 PM CDT Routine screening for STI (sexually transmitted infection) Night sweats Nausea HIV 1/2 AG/AB 4TH GEN Routine 02/17/2024 12:42 PM CDT Routine screening for STI (sexually transmitted infection) Night sweats Nausea HEPATITIS C ANTIBODY, WITH REFLEX Routine 02/17/2024 12:42 PM CDT Routine screening for STI (sexually transmitted infection) Night sweats Nausea COMPLETE BLOOD COUNT-W/DIFF Routine 01/28 12:42 PM CDT LLQ pain Night sweats Nausea NORBERT WITH REFLEX TO NORBERT PROFILE 2 Routine 02/17/2024 12:42 PM CDT Arthralgia, unspecified joint RHEUMATOID FACTOR, QUANT Routine 024 12:42 PM CDT Arthralgia, unspecified joint TESTOSTERONE, FEMALE OR CHILDREN Routine 02/17/2024 12:42 PM CDT LLQ pain Night sweats Nausea PROGESTERONE ADULT Routine 02/17/2024 12:42 PM CDT LLQ pain Night sweats Nausea LH Routine 02/17/2024 12:42 PM CDT LLQ pain Night sweats Nausea FSH Routine 02/17/2024 12:42 PM CDT LLQ pain Night sweats Nausea ESTRADIOL Routine 02/17/2024 12:42 PM CDT LLQ pain Night sweats Nausea DEHYDROEPIANDROSTERONE Routine 12:42 PM CDT LLQ pain Night sweats Nausea LIVER PANEL(HEPATIC FUNCTION PANEL) Routine 02/17/2024 12:42 PM CDT LLQ pain Night sweats Nausea BASIC METABOLIC PANEL Routine 02/17/2024 12:42 PM CDT LLQ pain Night sweats Nausea VITAMIN D 25-HYDROXY, TOTAL Routine 01/28 12:42 PM CDT LLQ pain Night sweats Nausea CELIAC DISEASE REFLEX WITH IGA Routine 02/17/2024 12:42 PM CDT LLQ pain Night sweats Nausea VITAMIN B12 ONLY Routine 02/17/2024 12:42 PM CDT LLQ pain Night sweats Nausea TSH, SENSITIVE (WITH REFLEX) Routine 12:42 PM CDT LLQ pain Night sweats Nausea IRON PROFILE (IRON,TIBC,%SAT.(CALC)) Routine 02/17/2024 12:42 PM CDT LLQ pain Night sweats Nausea FOLATE ONLY (4HR FAST RECOMMENDED) Routine 02/17/2024 12:42 PM CDT LLQ pain Night sweats Nausea FERRITIN Routine 02/17/2024 12:42 PM CDT LLQ pain Night sweats Nausea C-REACTIVE PROTEIN Routine 02/17/2024 12:42 PM CDT LLQ pain Night sweats Nausea CBC AND DIFFERENTIAL PANEL Routine 02/16 12:42 PM CDT LLQ pain Night sweats Nausea PAP TEST Routine 08/27/2023 3:13 PM CDT Screening for cervical cancer from Last 3 Months or Most Recently Relevant to Health Maintenance Results * MR Lumbar Spine WO IV [...] AM J [facility] 2015:36:811-16. Narrative Procedure Note Ebbitt, Stanley B, MD - 04/17/2024 IMPRESSION INDICATION: low back [...] degeneration(4-83%). Frequency percentages adapted from Alison W, Luetmer PH, Adriel B, etal. AJNR AM J Neuroradiol 2015:36:811-16. Marla Sprague EGG PACKER, HR GENERALIST RAD MRI * MR Thoracic Spine WO [...] No significant spinal canal stenosis. Marla Sprague EGG PACKER, HR GENERALIST RAD MRI * Dehydroepiandrosterone (02/17/2024 12:42 PM CDT) Dehydroepiandrosterone 4.125 0.630 - 4.700 ng/mL 02/21/2024 3:55 AM CDT [employer] [employer] Comment: INTERPRETIVE INFORMATION: Dehydroepiandrosterone, Females 18 years and older: ??Postmenopausal: 0.60-5.73 ng/mL REFERENCE INTERVAL: Dehydroepiandrosterone by TMS Access complete set of age- and/or gender-specific reference intervals for this test in the [facility] Test Directory ([facility]). This test was developed and its performance characteristics determined by [facility].. It has not been cleared or approved by the [place] Food and Drug Administration. This test was performed in a CLIA certified laboratory and is intended for clinical purposes. Performed By: [facility]. [address] [place] [id number] Pointer Helper: Elver Randall MD, PhD CLIA Number: [id number] Blood Venipuncture / Unknown 02/17/2024 12:42 PM CDT 02/17/2024 12:42 PM CDT Dima Shah APRN, CNP LAB_1 Performing Organization Address [facility] [place] [facility] Co de Phone Number [employer] [address] [place] [address] [place] [address] * Testosterone, female or children (02/17/2024 12:42 PM CDT) Testosterone Female or Children 17 9 - 55 ng/dL 02/21/2024 3:55 AM CDT [employer] Comment: REFERENCE INTERVAL: Testosterone by Clinical Medical Assistant Females Premenopausal ??9-55 ng/dL Postmenopausal 5-32 ng/dL INTERPRETIVE INFORMATION: Testosterone by Clinical Medical Assistant Free or bioavailable testosterone measurements may provide supportive information. For individuals on testosterone-suppressing hormone therapies (e.g., antiandrogens or estrogens), refer to cisgender female reference intervals. For a complete set of all established reference intervals, refer to [facility]/Tests/Pub/[id number]. This test was developed and its performance characteristics determined by [facility].. It has not been cleared or approved by the [place] Food and Drug Administration. This test was performed in a CLIA certified laboratory and is intended for clinical purposes. Performed By: [facility]. [address] [place] [address] Pointer Helper: Elver Randall MD, PhD CLIA Number: [id number] Blood Venipuncture / Unknown 02/17/2024 12:42 PM CDT 02/17/2024 12:42 PM CDT Dima Shah APRN, CNP LAB_1 Performing Organization Address [facility] [place] [facility]/ZIP Co de Phone Number [employer] [address] [place] [address] * Progesterone Adult (02/17/2024 12:42 PM CDT) Progesterone, Adult 0.3 ng/mL 02/18/2024 11:20 AM CDT [facility] Blood Venipuncture / Unknown 02/17/2024 12:42 PM CDT 02/17/2024 12:42 PM CDT Narrative [facility] - 02/18/2024 11:20 AM CDT Expected values for menstruating females Follicular Phase: <0.1-0.3 ng/mL Luteal Phase: 1.2-15.9 ng/mL Expected values for females 1st Trimester (4-12 weeks): 2.8-147.3 ng/mL 2nd Trimester (13-24 weeks): 22.5-95.3 ng/mL 3rd Trimester (25-36 weeks): 27.9-242.5 ng/mL Dima Shah APRN, CNP LAB_1 [facility] [address] * Treponema Screen (02/17/2024 12:42 PM CDT) Treponema Screen Result 0.095 {s_co_ratio } 02/17/2024 8:56 PM CDT [facility] Treponema Screen Interpretation Non Reactive Non Reactive 02/17/2024 8:56 PM CDT [facility] Blood Venipuncture / Unknown 02/17/2024 12:42 PM CDT 02/17/2024 12:42 PM CDT Dima Shah APRN HR GENERALIST LAB_1 [facility] [address] * NORBERT with Reflex to NORBERT Profile 2 (02/17/2024 12:42 PM CDT) NORBERT Interpretation Negative Negative 2023 11:52 AM CDT [facility] Blood Venipuncture / Unknown 02/17/2024 12:42 PM CDT 02/17/2024 12:42 PM CDT Dima Shah APRN, CNP LAB_1 Performing Organization Address City/[facility] [place] [facility]/ZIP Co de Phone Number [facility] [address] * HIV 1/2 Ag/Ab 4th Generation (02/17/2024 12:42 PM CDT) Pathologist [facility] HIV 1/2 Antigen/Antib karsten (4th generation) Negative (Non Reactive) Negative (Non Reactive) 02/17/2024 8:57 PM CDT [facility] Comment:HIV-1 p24 Antigen an d HIV-1/HIV-2 Antibody not detected Blood Venipuncture / Unknown 02/17/2024 12:42 PM CDT 02/17/2024 12:42 PM CDT Dima Shah APRN, CNP LAB_1 Performing Organization Address [facility] [place] [facility] Co de Phone Number [facility] [address] * Celiac Disease Reflex with IgA (02/17/2024 12:42 PM CDT) Pathologist [facility] IgA, Serum 106 65 - 421 mg/dL 02/18/2024 2:04 PM CDT [facility] Tissue Transglutaminase Antibody, IgA 0.2 0.0 - 6.9 U/mL 02/18/2024 2:04 PM CDT [facility] Tissue Transglutaminase Antibody, IgA Interpretation Negative Negative 02/18/2024 2:04 PM CDT [facility] Blood Venipuncture / Unknown 02/17/2024 12:42 PM CDT 02/17/2024 12:42 PM CDT Dima Shah APRN, CNP LAB_1 Performing Organization Address [facility] [place] [facility] Co de Phone Number [facility] [address] * Vitamin D 25-Hydroxy, Total (02/17/2024 12:42 PM CDT) Pathologist [facility] Vitamin D, 25-OH, Total 67 30 - 80 ng/mL 02/17/2024 9:06 PM CDT [facility] Blood Venipuncture / Unknown 02/17/2024 12:42 PM CDT 02/17/2024 12:42 PM CDT Dima Haq Abamariano JINA, TARYN LAB_1 [facility] [address] [place] * Complete Blood Count-W/Diff (02/17/2024 12:42 PM CDT) Pathologist [facility] WBC 6.5 3.5 - 10.5 x10(9)/L 02/17/2024 12:46 PM CDT [facility] RBC 4.51 3.90 - 5.03 x10(12)/L 02/17/2024 12:46 PM [facility] Hemoglobin 13.7 12.0 - 15.5 g/dL 02/17/2024 12:46 PM [facility] HCT 40.4 34.9 - 44.5 % 02/17/2024 12:46 PM [facility] MCV 89.6 80.0 - 100.0 fL 02/17/2024 12:46 PM [facility] MCH 30.4 27.6 - 33.3 pg 02/17/2024 12:46 PM [facility] MCHC 33.9 31.5 - 35.2 g/dL 02/17/2024 12:46 PM [facility] RDW 13.5 11.9 - 15.5 % 02/17/2024 12:46 PM [facility] Platelets 260 150 - 450 x10(9)/L 02/17/2024 12:46 PM [facility] Automated NRBC 0 <=0 /100 WBC 02/17/2024 12:46 PM [facility] Neutrophil Absolute 3.7 1.7 - 7.0 10(9)/L 02/17/2024 12:46 PM [facility] Lymphocyte Absolute 2.4 1.0 - 4.8 10(9)/L 02/17/2024 12:46 PM [facility] Monocyte Absolute 0.3 0.2 - 0.9 10(9)/L 02/17/2024 12:46 PM [facility] Eosinophil Absolute 0.0 0.0 - 0.5 10(9)/L 02/17/2024 12:46 PM [facility] Basophil Absolute 0.0 0.0 - 0.3 10(9)/L 02/17/2024 12:46 PM [facility] Immature Granulocyte % 0.5 0.0 - 0.5 % 02/17/2024 12:46 PM [facility] Blood Venipuncture / Unknown 02/17/2024 12:42 PM CDT 02/17/2024 12:42 PM CDT Dima Shah APRN, HR GENERALIST LAB_1 [facility] [address] [place] [address], [facility] * (ABNORMAL) Liver Panel(Hepatic Function Panel) (02/17/2024 12:42 PM CDT) Alkaline Phosphatase 39(L) 40 - 150 U/L 02/17/2024 3:31 PM [facility] Bilirubin, Total 2.4(H) 0.2 - 1.2 mg/dL 02/17/2024 3:31 PM [facility] Bilirubin, Direct 0.7(H) 0.0 - 0.5 mg/dL 02/17/2024 3:31 PM [facility] AST (SGOT) 16 10 - 40 U/L 02/17/2024 3:31 PM [facility] ALT (SGPT) 18 <=55 U/L 02/17/2024 3:31 PM [facility] Protein, Total 7.7 6.4 - 8.3 g/dL 02/17/2024 3:31 PM [facility] Albumin 4.6 3.5 - 5.0 g/dL 02/17/2024 3:31 PM [facility] Blood Venipuncture / Unknown 02/17/2024 12:42 PM CDT 02/17/2024 12:42 PM CDT Dima Shah APRN, CNP LAB_1 Performing Organization Address [facility] [place] [facility] de Phone Number [facility] [address] [place] [address] * Basic Metabolic Panel (02/17/2024 12:42 PM CDT) Sodium 140 136 - 145 mmol/L 02/17/2024 3:31 PM [facility] Potassium 3.8 3.5 - 5.1 mmol/L 02/17/2024 3:31 PM [facility] Chloride 108 98 - 109 mmol/L 02/17/2024 3:31 PM [facility] CO2 20 20 - 29 mmol/L 02/17/2024 3:31 PM [facility] Anion Gap 12 7 - 16 mmol/L 02/17/2024 3:31 PM [facility] Calcium 9.7 8.4 - 10.4 mg/dL 02/17/2024 3:31 PM [facility] BUN 10 7 - 26 mg/dL 02/17/2024 3:31 PM [facility] Creatinine 0.84 0.55 - 1.02 mg/dL 02/17/2024 3:31 PM [facility] Glucose 86 70 - 100 mg/dL 02/17/2024 3:31 PM [facility] Comment:The given reference range is for the fasting state. Non-fasting reference range for glucose is 70 - 180 mg/dL. GFR, Estimated >60 >60 mL/min/1.7 3m2 02/17/2024 3:31 PM [facility] Hours Fasting 0.1 8 - 12 Hours 02/17/2024 3:31 PM [facility] Comment:Lab unable to obtain patient's fasting status at time of specimen collection. Blood Venipuncture / Unknown 02/17/2024 12:42 PM CDT 02/17/2024 12:42 PM CDT Dima Shah APRN, CNP LAB_1 Performing Organization Address [facility] Co de Phone Number [facility] [address] [place] [address] * Rheumatoid Factor, Quant (02/17/2024 12:42 PM CDT) Pathologist [facility] Rheumatoid Factor, Quantitative <15 <=30 IU/mL 02/17/2024 8:25 PM CDT [facility] Blood Venipuncture / Unknown 02/17/2024 12:42 PM CDT 02/17/2024 12:42 PM CDT Dima Shah APRN, CNP LAB_1 Performing Organization Address [facility] Co de Phone Number [facility] [address] * Hepatitis C Antibody, with Reflex (02/17/2024 12:42 PM CDT) [facility] Hepatitis C Antibody Negative (Non Reactive) Negative (Non Reactive) 02/17/2024 8:57 PM CDT [facility] Comment:Antibodies to HCV no t detected. Does not exclude the possiblity of exposure to HCV. Blood Venipuncture / Unknown 02/17/2024 12:42 PM CDT 02/17/2024 12:42 PM CDT Dima Shah APRN, CNP LAB_1 Performing Organization Address [facility] Co de Phone Number [facility] [address] * Ferritin (02/17/2024 12:42 PM CDT) [facility] Ferritin 118 9 - 204 ng/mL 02/17/2024 9:09 PM CDT [facility] Blood Venipuncture / Unknown 02/17/2024 12:42 PM CDT 02/17/2024 12:42 PM CDT Dima Shah APRN, CNP LAB_1 Performing Organization Address City/[facility]/ZIP Co de Phone Number [facility] [address] [place] [address] * Estradiol (02/17/2024 12:42 PM CDT) Estradiol 11 pg/mL 02/17/2024 9:09 PM CDT [facility] Blood Venipuncture / Unknown 02/17/2024 12:42 PM CDT 02/17/2024 12:42 PM CDT Narrative [facility] - 02/17/2024 9:09 PM CDT The drug mifepristone may cause interference with the estradiol assay leading to significant falsely elevated estradiol results for up to two weeks following last dose. Expected values for menstruating females Follicular phase: 21-251 pg/mL Mid cycle phase: 38-649 pg/mL Luteal phase: 21-312 pg/mL Expected values for post menopausal females On HRT: <10-144 pg/mL Not on HRT: <10-28 pg/mL Dima Shah APRN, CNP LAB_1 Performing Organization Address City/[facility]/ZIP Co de Phone Number [facility] [address] * C-Reactive Protein (02/17/2024 12:42 PM CDT) C-Reactive Protein <0.5 0.0 - 0.5 mg/dL 02/17/2024 3:31 PM CDT [facility] Blood Venipuncture / Unknown 02/17/2024 12:42 PM CDT 02/17/2024 12:42 PM CDT Dima Shah APRN, CNP LAB_1 [facility] [address] [place] [phone] * LH (02/17/2024 12:42 PM CDT) LH <1 mIU/mL 02/17/2024 8:56 PM CDT [facility] Blood Venipuncture / Unknown 02/17/2024 12:42 PM CDT 02/17/2024 12:42 PM CDT Narrative [facility] - 02/17/2024 8:56 PM CDT Expected values for menstruating females Follicular Phase: 2-12 mIU/mL Mid-Cycle Peak: 8-89 mIU/mL Luteal Phase: 1-14 mIU/mL Expected values for postmenopausal females On HRT: 5-62 mIU/mL Dima Shah APRN, CNP LAB_1 Performing Organization Address [facility] Phone Number [facility] [address] [place] [address] * FSH (02/17/2024 12:42 PM CDT) FSH 4.2 mIU/mL 02/17/2024 9:09 PM CDT [facility] Blood Venipuncture / Unknown 02/17/2024 12:42 PM CDT 02/17/2024 12:42 PM CDT Narrative [facility] - 02/17/2024 9:09 PM CDT Expected values for mensturating females Follicular Phase: 3.0-8.1 mIU/mL Mid-Cycle Peak: 2.6-16.7 mIU/mL Luteal Phase: 1.4-5.5 mIU/mL Post Menopausal Females without HRT: 26.8-133.4 mIU/mL Dima Shah APRN, CNP LAB_1 Performing Organization Address [facility] Phone Number [facility] [address] [place] [address] * TSH with Free T4 (if TSH Abnormal) (02/17/2024 12:42 PM CDT) TSH, Reflex 1.30 0.30 - 4.50 uIU/mL 02/17/2024 8:58 PM CDT [facility] Blood Venipuncture / Unknown 02/17/2024 12:42 PM CDT 02/17/2024 12:42 PM CDT Dima Shah APRN, CNP LAB_1 Performing Organization Address City/[facility]/ZIP Co de Phone Number [facility] [address] * Hepatitis B Surface Antigen (02/17/2024 12:42 PM CDT) Hepatitis B Surface Antigen Negative (Non Reactive) Negative (Non Reactive) 02/17/2024 8:56 PM CDT [facility] Blood Venipuncture / Unknown 02/17/2024 12:42 PM CDT 02/17/2024 12:42 PM CDT Dima Shah APRN, CNP LAB_1 Performing Organization Address [facility] Phone Number [facility] [address] [place] [address] * Folate Only (4Hr Fast Recommended) (02/17/2024 12:42 PM CDT) Pathologist [facility] Folate 15.0 >=7.0 ng/mL 02/17/2024 9:21 PM CDT [facility] Blood Venipuncture / Unknown 02/17/2024 12:42 PM CDT 02/17/2024 12:42 PM CDT Dima Shah APRN, HR GENERALIST LAB_1 Performing Organization Address [facility] Phone Number [facility] [address] [place] [address] * (ABNORMAL) Vitamin B12 Only (02/17/2024 12:42 PM CDT) Pathologist [facility] Vitamin B12 888(H) 213 - 816 pg/mL 02/17/2024 9:09 PM CDT [facility] Blood Venipuncture / Unknown 02/17/2024 12:42 PM CDT 02/17/2024 12:42 PM CDT Dima Shah APRN, CNP LAB_1 Performing Organization Address [facility] Co de Phone Number [facility] [address] * Iron Profile (Iron,TIBC,%Sat.(Calc)) (02/17/2024 12:42 PM CDT) Iron 100 50 - 170 mcg/dL 02/17/2024 8:45 PM CDT [facility] Transferrin 305 180 - 382 mg/dL 02/17/2024 8:45 PM CDT [facility] TIBC, Calculated 381 240 - 450 mcg/dL 02/17/2024 8:45 PM CDT [facility] % Saturation, Calculated 26 10 - 50 % 02/17/2024 8:45 PM CDT [facility] Blood Venipuncture / Unknown 02/17/2024 12:42 PM CDT 02/17/2024 12:42 PM CDT Dima Shah APRN, HR GENERALIST LAB_1 [facility] [address] [place] * PAP Test (08/27/2023 3:13 PM CDT) Pathologist [facility] Case Report Pap ? Case: [id number] ? Authorizing Provider: ??Dima Shah APRN, ?? Collected: ? 08/27/2023 1513 ? HR GENERALIST ? Ordering Location: ? [facility] Received: ?08/27/2023 1532 ? First Screen: ?SUKI MURILLO ? Specimen: ?Pap Test, Routine, Cervix/Endocervix ? 09/09/2023 12:06 PM CDT [facility] Pap Specimen Adequacy Satisfactory for evaluation, endocervical/jolley sformation zone component present. 09/09/2023 12:06 PM CDT [facility] Pap Interpretation (NILM) Negative for intraepithelial lesion or malignancy. 09/09/2023 12:06 PM CDT [facility] Pap Disclaimer The Pap test is a screening test to aid in the detection of cervical and vaginal cancers and their precursor lesions. It is not a diagnostic procedure and should not be used as the sole means of detecting malignancy. Both false-positive and false-negative results may occur. 09/09/2023 12:06 PM CDT [facility] Gross Description The specimen is received in SurePath fixative and properly labeled. 1 Pap-stained SurePath slide is prepared. 09/09/2023 12:06 PM CDT [facility] Embedded Images 12:06 PM CDT [facility] Other Specimen Type ENTIRE ENDOCERVIX / Unknown 08/27/2023 3:13 PM CDT 08/27/2023 3:32 PM CDT Comment:LMP: No LMP recorded . (Menstrual status: Irregular). Dima Shah APRN, HR GENERALIST LAB PATHOLOGY [facility] [address] [place] [address], [facility] from Last 3 Months or Most Recently Relevant to Health Maintenance Advance Directives * Full Code (Latest Code Status on File) Date Activated Date Inactivated Comments 10/22/2014 8:23 AM 10/22/2014 1:39 PM Care Teams Final Inspector Motorcyles Relationship Specialty Start Date End Date Dima Shah APRN, HR GENERALIST [address] [place] [address] PCP - General Nurse Practitioner 08/05/23
--- OUTSIDE RECORDS SUMMARY | 2024-05-12 03:26 | XMS_ITS | Encounter Summary ---
Author Organization [facility] Address [address] [place] [address] Care Team Providers Care Director Of Retail Merchandising Name Role Phone Dima Shah APRN, DIRECTOR BUSINESS SYSTEMS Primary Care Provide r Reason for Visit * Reason Onset Date Comments Refill 03/22/2024 Encounter Details Date Type Department Care Team (Late st Contact Info) Description 03/22/[address] [facility] [address] [facility] [address] [facility] [place], [place] [id number] Mrala Sprague APRN, DIRECTOR BUSINESS SYSTEMS [address] [place], [place] [id number] Refill Social History Tobacco Use Types Packs/Day [...] of this encounter Nursing Notes * Chioma Townsend RN - 03/22/2024 11:13 AM CDT Last ov02/02/2024 Next ov 04/04/2024 Plan: Schedule Pelvic PT Thoracic/lumbar MRIs to rule out radiculopathies ordered at previous visit. Could consider Occupational Therapy (Lifestyle Renewal program), Pain Psychology, chiropractic, acupuncture Order for TENS unit today Trial increasing amitriptyline 10mg to two capsules (20mg) at bedtime. Continue oxycodone 5mg 1-2 tablets daily for severe pain #60. May call for one refill prior to nextvisit.discussed decreasing this as able, not recommended for group home use, particularly if seeing some relief from the new medication for endometriosis, can slowly self taper Can use acetaminophen 500mg 1-2 tabs three times a day as needed to replace ibuprofen. Medical cannabis certification completed previously-she does report this helps with sleep at night Follow up in 2 months - telehealth. documented in this encounter Plan of Treatment Upcoming Encounters Date Type Department Care Team (Late st Contact Info) Description 05/19/2024 9:15 AM CDT Appointment [facility] [address] [place] [phone] Marla Sprague APRN, DIRECTOR BUSINESS SYSTEMS [address] [place] [address] 05/31/2024 1:45 PM CDT Telemedicine [facility]-QUALITY TECHNICIAN [place] [address] [facility], [address] [place] [phone] [place] [address] [place] [address] documented as of this encounter Visit Diagnoses Diagnosis Chronic pain syndrome documented in this encounter Care Teams Director Of Retail Merchandising Relationship Specialty Start Date End Date Dima Shah APRN, DIRECTOR BUSINESS SYSTEMS [address] [place] [address] PCP - General Nurse Practitioner 08/05/23 documented as of this encounter
--- OUTSIDE RECORDS SUMMARY | 2024-05-12 03:26 | XMS_ITS | Encounter Summary ---
Author Organization [facility] Address [address], [place] [address] Care Team Providers Care Booking Supervisor Name Role Phone Dima Shah APRN, ELASTIC ATTACHER ZIGZAG Primary Care Provide r Reason for Visit * Procedure/Equipment (Routine) - Incomplete Specialty Diagnoses / Procedures Referred By Contac t Referred To Contact Diagnoses Chronic bilateral low back pain without sciatica Mid back pain Procedures MR Thoracic Spine WO IV Cont Marla Sprague APRN, ELASTIC ATTACHER ZIGZAG [address] [place] [address] Referral ID Status Reason Start Date Expiration Date V isits Requested Visits Authorized [id number] Incomplete 04/04/2024 07/04/2025 1 1 Encounter Details Date Type Department Care Team (Latest Contact Info) Description 04/15/2024 11:00 AM CDT Ancillary Procedure [facility] [place] [address] [place] [address] Marla Sprague APRN, ELASTIC ATTACHER [employer]IGZAG [address] [place] [address] Chronic bilateral low back pain [...] Info) Description 05/19/2024 9:15 AM CDT Appointment [facility] [address] [place] [address] Marla Sprague APRN, ELASTIC ATTACHER ZIGZAG [address] [place] [address] 05/31/2024 1:45 PM CDT Telemedicine [facility]-[employer]ICAL [employer]IONS CONSULTANT [address] [facility], [address] [place] [phone] [place] [address] [place], [place] [phone] documented as of this encounter Procedures Procedure Name Priority Date/Time Associated Diagnosis Comments MR THORACIC SPINE WO IV CONT Routine 04/15/2024 11:21 AM CDT Chronic bilateral low back pain without sciatica Mid back pain documented in this encounter Results * MR Thoracic Spine WO IV Cont [...] significant spinal canal stenosis. Marla Sprague APRN, TARYN RAD MRI documented in this encounter Visit Diagnoses Diagnosis Chronic bilateral low back pain without sciatica Mid back pain Backache, unspecified documented in this encounter Care Teams Booking Supervisor Relationship Specialty Start Date End Date Dima Shah APRN, TARYN [address] [place] [address] PCP - General Nurse Practitioner 08/05/23 documented as of this encounter
--- OUTSIDE RECORDS SUMMARY | 2024-05-12 03:27 | XMS_ITS | Encounter Summary ---
Author Organization [facility] Address [address] [place] [address] Care Team Providers Care Seismic Prospecting Observer Helper Name Role Phone Dima Shah APRN, CNP Primary Care Provide r Reason for Visit * Reason Comments Abdominal Pain Patient has had abdo ermelinda pain starting April 2023 and has seen several specialty depts with no answers. Patient now has new symptoms Encounter Details Date Type Department Care Team (Late st Contact Info) Description 02/17/2024 11:30 AM CDT Office Visit [facility] [address] [place] [address] Dima Shah APRN, CNP [address] [place] [address] LLQ pain (Primary Dx); Nausea; Nonintractable headache, unspecified chronicity pattern, unspecified headache type; Arthralgia, unspecified joint; Weight loss; Night sweats; Chronic prescription opiate use; BHAVESH (generalized anxiety disorder) ([facility]); Routine screening for STI (sexually transmitted infection) Social History Tobacco Use Types Packs/Day Years [...] on file documented as of this encounter Last Filed Vital Signs Vital Sign Reading Time Taken Comments Blood Pressure 133/91 02/17/2024 11:50 AM CDT Pulse 110 02/17/2024 11:50 AM CDT Temperature 36.4 ??C (97.5 ??F) 02/17/2024 11:41 AM C DT Respiratory Rate 18 02/17/2024 11:41 AM CDT Oxygen Saturation - - Inhaled Oxygen Concentration - - Weight 70.8 kg (156 lb) 02/17/2024 11:41 AM CDT Height 170 cm (5' 6.93) 02/17/2024 11:41 AM CDT Body Mass Index 24.48 02/17/2024 11:41 AM CDT documented in this encounter Progress Notes * Dima Shah, JINA, BULLDOZER ENGINEER - 02/17/2024 11:30 AM CDT History of Present Illness: ANGIE STEPHEN is a 43 y.o. 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 LLQ pain: First seen by me on 08/27/2024 for LLQ pain. She has been on a journey through multiple specialists since then trying to determine the cause of her pain. She has seen ObGyn, Urology, and GI. Today she would like to discuss other symptoms that she has been having recently in order for further labwork to be completed. Other symptoms: She is having daily nausea that is not from the pain. Sometimes she is unable to eat because she has so much nausea. She denies . She has had 8 pounds of weight loss this month because she is unable to eat due to the nausea. Concerned because her weight will fluctuate around 3 pounds throughout the day. She is getting very bad night sweats and then she will get chills. Denies fevers. She is wondering if she is going through perimenopause. Would like to check hormones. Having a lot of headaches. Concerned about bilateral joint pain in the wrists, forerarms, hands, and fingers. They do not swell up but they are very painful. Notes that her fingers and toes sometime randomly turn blue when she is cold. Notes that sometimes she gets sores on the bottom of her feet and her feet will get raw and tender. Has debilitating fatigue. Notes that her legs will go numb and tingling from the knees down every other day or so. She was recommended by Pain Clinic to complete back MRIs but she hs not done this yet. History of elevated bilirubin and would like to check this. Was seen by Urology and had repeat CT that was normal. Pain not thought to be from Urologic source. Seen by ObGyn and started on norethidorone acetate 5mg daily to see if this helps. Been on 4 weeks and it does not seem helpful. IUD was removed and she notes no change. Oxycodone use just depends on the day. Some days none and other days will have more than one. She would like further workup. Vitamins she takes: SMarty pants women's multie Scott 3 Hair, skin, and nails [place] cinnamon Fiber 1 Women's probiotic Tumeric and chan Magnesium glycinate Review of Systems: A complete ROS was obtained and was negative except as noted above in the HPI. Past medical, surgical, and [facility]. Medications: The patient has a current medication list which includes the following prescription(s): amitriptyline, dicyclomine, ibuprofen, medical cannabis, multiple vitamin, norethindrone, ondansetron, and oxycodone. Allergies: Patient has no known allergies. Objective: BP (!) 133/91 (BP Location: Right Arm, BP Cuff Size: Regular) Pulse (!) 110 Temp 97.5 ??F (36.4??C) (Oral) Resp 18 Ht 5' 6.93 (1.7 m) Wt 156 lb (70.8 kg) BMI 24.48 kg/m?? GENERAL: Patient is alert and oriented. No acute distress. HEENT: Head AT/NC. Eyes PERRLA, full EOM. LUNGS: Symmetrical expansion, normal respiratory effort. Lungs clear in all escamilla. HEART: Regular rate and rhythm. No murmurs. ABDOMEN: Soft, non-tender, EXTREMITIES: No edema. PSYCH: Well-oriented. Appropriate mood and affect. NEURO: Speech and gait are normal. Assessment and Plan: Angie was seen today for abdominal pain. Diagnoses and all orders for this visit: LLQ pain - Complete Blood Count -W/Diff; Future - C-Reactive Protein; Future - Ferritin; Future - Folate Only (4Hr Fast Recommended); Future - Iron Profile (Iron,TIBC,%Sat.(Calc)); Future - TSH with Free T4 (if TSH Abnormal); Future - Vitamin B12 Only; Future - Celiac Disease Reflex with IgA; Future - Vitamin D 25-Hydroxy, Total; Future - Basic Metabolic Panel; Future - Liver Panel(Hepatic Function Panel); Future - Dehydroepiandrosterone; Future - Estradiol; Future - FSH; Future - LH; Future - Progesterone Adult; Future - Testosterone, female or children; Future Nausea - ondansetron (ZOFRAN-ODT) 4 MG disintegrating tablet; Take 0.5 Tablets (2 mg) by mouth every 8 hours as needed for Nausea. - Complete Blood Count -W/Diff; Future - C-Reactive Protein; Future - Ferritin; Future - Folate Only (4Hr Fast Recommended); Future - Iron Profile (Iron,TIBC,%Sat.(Calc)); Future - TSH with Free T4 (if TSH Abnormal); Future - Vitamin B12 Only; Future - Hepatitis C Antibody, with Reflex; Future - HIV 1/2 Ag/Ab 4th Generation; Future - Treponema Screen; Future - Hepatitis B Surface Antigen; Future - Celiac Disease Reflex with IgA; Future - Vitamin D 25-Hydroxy, Total; Future - Basic Metabolic Panel; Future - Liver Panel(Hepatic Function Panel); Future - Dehydroepiandrosterone; Future - Estradiol; Future - FSH; Future - LH; Future - Progesterone Adult; Future - Testosterone, female or children; Future Nonintractable headache, unspecified chronicity pattern, unspecified headache type Arthralgia, unspecified joint - Rheumatoid Factor, Quant; Future - NORBERT with Reflex to NORBERT Profile 2; Future Weight loss Night sweats - Complete Blood Count -W/Diff; Future - C-Reactive Protein; Future - Ferritin; Future - Folate Only (4Hr Fast Recommended); Future - Iron Profile (Iron,TIBC,%Sat.(Calc)); Future - TSH with Free T4 (if TSH Abnormal); Future - Vitamin B12 Only; Future - Hepatitis C Antibody, with Reflex; Future - HIV 1/2 Ag/Ab 4th Generation; Future - Treponema Screen; Future - Hepatitis B Surface Antigen; Future - Celiac Disease Reflex with IgA; Future - Vitamin D 25-Hydroxy, Total; Future - Basic Metabolic Panel; Future - Liver Panel(Hepatic Function Panel); Future - Dehydroepiandrosterone; Future - Estradiol; Future - FSH; Future - LH; Future - Progesterone Adult; Future - Testosterone, female or children; Future Chronic prescription opiate use BHAVESH (generalized anxiety disorder) ([facility]) Routine screening for STI (sexually transmitted infection) - Hepatitis C Antibody, with Reflex; Future - HIV 1/2 Ag/Ab 4th Generation; Future - Treponema Screen; Future - Hepatitis B Surface Antigen; Future Will do full lab work up today as many of these labs have not been completed yet. Will rule out STIs, autoimmune and other. She should continue to follow with Pain and ObGyn. Will take next steps based on lab results. Patient is to contact me with any new or worsening symptoms. The patient was discharged ambulatory and in stable condition. Patient verbalizes understanding and is in agreement with plan. Follow up: Pending lab results. Dima Shah APRN, BULLDOZER ENGINEER Billing: Total time spent on this visit on the day of the encounter, including preparing for the visit, time spent with the patient, placing orders, writing the note, was 53 minutes. This note contains medical terminology which is meant for communication between health care clinicians and providers. Please note that vocabulary/phrasing/abbreviations may not carry the same definitions as they would in normal conversational speech. Additionally voice recognition software was usedto generate this note. As a result, wrong word or '[id number]' substitutions may have occurred due to the inherent limitations of voice recognition software. There may be errors in the script that have gone undetected. Please consider this when interpreting information found in this chart. documented in this encounter Plan of Treatment Upcoming Encounters Date Type Department Care Team (Late st Contact Info) Description 05/19/2024 9:15 AM CDT Appointment [facility] [address] [place] [address] Marla Sprague APRN, BULLDOZER ENGINEER [address] [place] [address] [phone] 05/31/2024 1:45 PM CDT Telemedicine [facility]-BIODIESEL PLANT MANAGER [address] [facility], [address] [place] [address] [place] [address] [place] [address] [place] [address] documented as of this encounter Results * NORBERT with Reflex to NORBERT Profile 2 (02/17/2024 12:42 PM CDT) Pathologist [facility] NORBERT Interpretation Negative Negative 2023 11:52 AM CDT [facility] Blood Venipuncture / Unknown 02/17/2024 12:42 PM CDT 02/17/2024 12:42 PM CDT Dima Shah APRN, CNP LAB_1 Performing Organization Address [facility] Co de Phone Number [facility] [address] [place] [address] * Rheumatoid Factor, Quant (02/17/2024 12:42 PM CDT) Pathologist [facility] Rheumatoid Factor, Quantitative <15 <=30 IU/mL 02/17/2024 8:25 PM CDT [facility] Blood Venipuncture / Unknown 02/17/2024 12:42 PM CDT 02/17/2024 12:42 PM CDT Dima Shah APRN, CNP LAB_1 Performing Organization Address City/[facility]/ZIP Co de Phone Number [facility] [address] [place] [address] * Testosterone, female or children (02/17/2024 12:42 PM CDT) Pathologist [facility] Testosterone Female or Children 17 9 - 55 ng/dL 02/21/2024 3:55 AM CDT [facility] [employer] Comment: REFERENCE INTERVAL: Testosterone by Sheet Metal Fabricator Females Premenopausal ??9-55 ng/dL Postmenopausal 5-32 ng/dL INTERPRETIVE INFORMATION: Testosterone by Sheet Metal Fabricator Free or bioavailable testosterone measurements may provide supportive information. For individuals on testosterone-suppressing hormone therapies (e.g., antiandrogens or estrogens), refer to cisgender female reference intervals. For a complete set of all established reference intervals, refer to ltd.Glad [employer] You/Tests/Pub/[id number]. This test was developed and its performance characteristics determined by [facility]. It has not been cleared or approved by the US Food and Drug Administration. This test was performed in a CLIA certified laboratory and is intended for clinical purposes. Performed By: [facility] [address] [place] [address] Teacher Preschool: Elver Randall MD, PhD CLIA Number: [id number] Blood Venipuncture / Unknown 02/17/2024 12:42 PM CDT 02/17/2024 12:42 PM CDT Dima Shah APRN, CNP LAB_1 Performing Organization Address [facility] Co de Phone Number [facility] [address] [place] [address] * Progesterone Adult (02/17/2024 12:42 PM CDT) Progesterone, Adult 0.3 ng/mL 02/18/2024 11:20 AM CDT [facility] Blood Venipuncture / Unknown 02/17/2024 12:42 PM CDT 02/17/2024 12:42 PM CDT Narrative [facility] - 02/18/2024 11:20 AM CDT Expected values for menstruating females Follicular Phase: <0.1-0.3 ng/mL Luteal Phase: 1.2-15.9 ng/mL Expected values for females 1st Trimester (4-12 weeks): 2.8-147.3 ng/mL 2nd Trimester (13-24 weeks): 22.5-95.3 ng/mL 3rd Trimester (25-36 weeks): 27.9-242.5 ng/mL Dima Shah APRN, CNP LAB_1 Performing Organization Address [facility] Co de Phone Number [facility] [address] * LH (02/17/2024 12:42 PM CDT) LH <1 mIU/mL 02/17/2024 8:56 PM CDT [facility] Blood Venipuncture / Unknown 02/17/2024 12:42 PM CDT 02/17/2024 12:42 PM CDT Narrative [facility] - 02/17/2024 8:56 PM CDT Expected values for menstruating females Follicular Phase: 2-12 mIU/mL Mid-Cycle Peak: 8-89 mIU/mL Luteal Phase: 1-14 mIU/mL Expected values for postmenopausal females On HRT: 5-62 mIU/mL Dima Shah APRN, CNP LAB_1 Performing Organization Address [facility] [[email or web address]] de [facility] Number [facility] [address] [place] [address] * FSH (02/17/2024 12:42 PM CDT) FSH 4.2 mIU/mL 02/17/2024 9:09 PM CDT [facility] Blood Venipuncture / Unknown 02/17/2024 12:42 PM CDT 02/17/2024 12:42 PM CDT Narrative [facility] - 02/17/2024 9:09 PM CDT Expected values for mensturating females Follicular Phase: 3.0-8.1 mIU/mL Mid-Cycle Peak: 2.6-16.7 mIU/mL Luteal Phase: 1.4-5.5 mIU/mL Post Menopausal Females without HRT: 26.8-133.4 mIU/mL Dima Shah APRN, CNP LAB_1 Performing Organization Address [facility] [[email or web address]] de Phone Number [facility] [address] [place] [address] * Estradiol (02/17/2024 12:42 PM CDT) Estradiol 11 pg/mL 02/17/2024 9:09 PM CDT [facility] Blood Venipuncture / Unknown 02/17/2024 12:42 PM CDT 02/17/2024 12:42 PM CDT Narrative [facility] - 02/17/2024 9:09 PM CDT The [...] Shah APRN, CNP LAB_1 Performing Organization Address [facility]/State/ZIP Co de Phone Number [facility] [address] * Dehydroepiandrosterone (02/17/2024 12:42 PM CDT) [facility] Dehydroepiandrosterone 4.125 0.630 - 4.700 ng/mL 02/21/2024 3:55 AM CDT [facility] [employer] Comment: INTERPRETIVE INFORMATION: Dehydroepiandrosterone, Females 18 years and older: ??Postmenopausal: 0.60-5.73 ng/mL REFERENCE INTERVAL: Dehydroepiandrosterone by [facility] Access complete set of age- and/or gender-specific reference intervals for this test in the [facility] Test Directory (Glad to Have You). This test was developed and its performance characteristics determined by [facility]. It has not been cleared or approved by the US Food and Drug Administration. This test was performed in a CLIA certified laboratory and is intended for clinical purposes. Performed By: [facility] [address] [place] [address] Teacher Preschool: Elver Randall MD, PhD CLIA Number: [id number] Blood Venipuncture / Unknown 02/17/2024 12:42 PM CDT 02/17/2024 12:42 PM CDT Dima Shah APRN, CNP LAB_1 [facility] [address] [place], [place] [address] [place] [address] * (ABNORMAL) Liver Panel(Hepatic Function Panel) (02/17/2024 12:42 PM CDT) Alkaline Phosphatase 39(L) 40 - 150 U/L 02/17/2024 3:31 PM CDT [facility] Bilirubin, Total 2.4(H) 0.2 - 1.2 mg/dL 02/17/2024 3:31 PM T [facility] Bilirubin, Direct 0.7(H) 0.0 - 0.5 mg/dL 02/17/2024 3:31 PM T [facility] AST (SGOT) 16 10 - 40 U/L 02/17/2024 3:31 PM [facility] ALT (SGPT) 18 <=55 U/L 02/17/2024 3:31 PM T [facility] Protein, Total 7.7 6.4 - 8.3 g/dL 02/17/2024 3:31 PM T [facility] Albumin 4.6 3.5 - 5.0 g/dL 02/17/2024 3:31 PM [facility] Blood Venipuncture / Unknown 02/17/2024 12:42 PM CDT 02/17/2024 12:42 PM CDT Dima Shah APRN, CNP LAB_1 Performing Organization Address City/[facility]/ZIP Co de Phone Number [facility] [address] [place] [address] * Basic Metabolic Panel (02/17/2024 12:42 PM CDT) Sodium 140 136 - 145 mmol/L 02/17/2024 3:31 PM CDT [facility] Potassium 3.8 3.5 - 5.1 mmol/L 02/17/2024 3:31 PM T [facility] Chloride 108 98 - 109 mmol/L 02/17/2024 3:31 PM T [facility] CO2 20 20 - 29 mmol/L 02/17/2024 3:31 PM [facility] Anion Gap 12 7 - 16 mmol/L 02/17/2024 3:31 PM [facility] Calcium 9.7 8.4 - 10.4 mg/dL 02/17/2024 3:31 PM [facility] BUN 10 7 - 26 mg/dL 02/17/2024 3:31 PM [facility] Creatinine 0.84 0.55 - 1.02 mg/dL 02/17/2024 3:31 PM [facility] Glucose 86 70 - 100 mg/dL 02/17/2024 3:31 PM [facility] Comment:The given reference range is for the fasting state. Non-fasting reference range for glucose is 70 - 180 mg/dL. GFR, Estimated >60 >60 mL/min/1.7 3m2 02/17/2024 3:31 PM [facility] Hours Fasting 0.1 8 - 12 Hours 02/17/2024 3:31 PM [facility] Comment:Lab unable to obtain patient's fasting status at time of specimen collection. Blood Venipuncture / Unknown 02/17/2024 12:42 PM CDT 02/17/2024 12:42 PM CDT Dima Shah APRN, CNP LAB_1 Performing Organization Address City/[facility]/ZIP Co de Phone Number [facility] [address] [place] [address] * Vitamin D 25-Hydroxy, Total (02/17/2024 12:42 PM CDT) Pathologist [facility] Vitamin D, 25-OH, Total 67 30 - 80 ng/mL 02/17/2024 9:06 PM CDT [facility] Blood Venipuncture / Unknown 02/17/2024 12:42 PM CDT 02/17/2024 12:42 PM CDT Dima Shah APRN, CNP LAB_1 [facility] [address] * Celiac Disease Reflex with IgA (02/17/2024 12:42 PM CDT) IgA, Serum 106 65 - 421 mg/dL 02/18/2024 2:04 PM CDT [facility] Tissue Transglutaminase Antibody, IgA 0.2 0.0 - 6.9 U/mL 02/18/2024 2:04 PM CDT [facility] Tissue Transglutaminase Antibody, IgA Interpretation Negative Negative 02/18/2024 2:04 PM CDT [facility] Blood Venipuncture / Unknown 02/17/2024 12:42 PM CDT 02/17/2024 12:42 PM CDT Dima Shah APRN, CNP LAB_1 [facility] [address] * Hepatitis B Surface Antigen (02/17/2024 12:42 PM CDT) Hepatitis B Surface Antigen Negative (Non Reactive) Negative (Non Reactive) 02/17/2024 8:56 PM CDT [facility] Blood Venipuncture / Unknown 02/17/2024 12:42 PM CDT 02/17/2024 12:42 PM CDT Dima Shah APRN, CNP LAB_1 [facility] [address] * Treponema Screen (02/17/2024 12:42 PM CDT) Treponema Screen Result 0.095 {s_co_ratio } 02/17/2024 8:56 PM CDT [facility] Treponema Screen Interpretation Non Reactive Non Reactive 02/17/2024 8:56 PM CDT [facility] Blood Venipuncture / Unknown 02/17/2024 12:42 PM CDT 02/17/2024 12:42 PM CDT Dima Shah APRN, TARYN LAB_1 Performing Organization Address [facility] Co de Phone Number [facility] [address] [place] [address] * HIV 1/2 Ag/Ab 4th Generation (02/17/2024 12:42 PM CDT) Pathologist [facility] HIV 1/2 Antigen/Antib karsten (4th generation) Negative (Non Reactive) Negative (Non Reactive) 02/17/2024 8:57 PM CDT [facility] Comment:HIV-1 p24 Antigen an d HIV-1/HIV-2 Antibody not detected Blood Venipuncture / Unknown 02/17/2024 12:42 PM CDT 02/17/2024 12:42 PM CDT Dima Shah APRN, BULLDOZER ENGINEER LAB_1 Performing Organization Address [facility] [[email or web address]] de Phone Number [facility] [address] [place] [address] * Hepatitis C Antibody, with Reflex (02/17/2024 12:42 PM CDT) Pathologist [facility] Hepatitis C Antibody Negative (Non Reactive) Negative (Non Reactive) 02/17/2024 8:57 PM CDT [facility] Comment:Antibodies to HCV no t detected. Does not exclude the possiblity of exposure to HCV. Blood Venipuncture / Unknown 02/17/2024 12:42 PM CDT 02/17/2024 12:42 PM CDT Dima Shah APRN, TARYN LAB_1 Performing Organization Address [facility] [[email or web address]] de Phone Number [facility] [address] [place] [address] * (ABNORMAL) Vitamin B12 Only (02/17/2024 12:42 PM CDT) Pathologist [facility] Vitamin B12 888(H) 213 - 816 pg/mL 02/17/2024 9:09 PM CDT [facility] Blood Venipuncture / Unknown 02/17/2024 12:42 PM CDT 02/17/2024 12:42 PM CDT Dima Shah APRN, CNP LAB_1 Performing Organization Address [facility] Phone Number [facility] [address] * TSH with Free T4 (if TSH Abnormal) (02/17/2024 12:42 PM CDT) TSH, Reflex 1.30 0.30 - 4.50 uIU/mL 02/17/2024 8:58 PM CDT [facility] Blood Venipuncture / Unknown 02/17/2024 12:42 PM CDT 02/17/2024 12:42 PM CDT Dima Shah APRN, CNP LAB_1 Performing Organization Address [facility] Phone Number [facility] [address] [place] [address] * Iron Profile (Iron,TIBC,%Sat.(Calc)) (02/17/2024 12:42 PM CDT) Iron 100 50 - 170 mcg/dL 02/17/2024 8:45 PM CDT [facility] Transferrin 305 180 - 382 mg/dL 02/17/2024 8:45 PM CDT [facility] TIBC, Calculated 381 240 - 450 mcg/dL 02/17/2024 8:45 PM CDT [facility] % Saturation, Calculated 26 10 - 50 % 02/17/2024 8:45 PM CDT [facility] Blood Venipuncture / Unknown 02/17/2024 12:42 PM CDT 02/17/2024 12:42 PM CDT Dima Shah APRN, CNP LAB_1 Performing Organization Address [facility] Co de Phone Number [facility] [address] * Folate Only (4Hr Fast Recommended) (02/17/2024 12:42 PM CDT) Folate 15.0 >=7.0 ng/mL 02/17/2024 9:21 PM CDT [facility] Blood Venipuncture / Unknown 02/17/2024 12:42 PM CDT 02/17/2024 12:42 PM CDT Dima Shah APRN, CNP LAB_1 Performing Organization Address [facility] Co de Phone Number [facility] [address] * Ferritin (02/17/2024 12:42 PM CDT) Pathologist [facility] Ferritin 118 9 - 204 ng/mL 02/17/2024 9:09 PM CDT [facility] Blood Venipuncture / Unknown 02/17/2024 12:42 PM CDT 02/17/2024 12:42 PM CDT Dima Shah APRN, CNP LAB_1 Performing Organization Address [facility] Phone Number [facility] [address] * C-Reactive Protein (02/17/2024 12:42 PM CDT) [facility] C-Reactive Protein <0.5 0.0 - 0.5 mg/dL 02/17/2024 3:31 PM CDT [facility] Blood Venipuncture / Unknown 02/17/2024 12:42 PM CDT 02/17/2024 12:42 PM CDT Dima Shah APRN, CNP LAB_1 Performing Organization Address [facility] [[email or web address]] de Phone Number [facility] [address] [place] [address] documented in this encounter Visit Diagnoses Diagnosis LLQ pain- Primary Abdominal pain, left lower quadrant Nausea Nausea alone Nonintractable headache, unspecified chronicity pattern, unspecified headache type Arthralgia, unspecified joint Weight loss Loss of weight Night sweats Generalized hyperhidrosis Chronic prescription opiate use BHAVESH (generalized anxiety disorder) ([facility]) Generalized anxiety disorder Routine screening for STI (sexually transmitted infection) Screening examination for venereal disease documented in this encounter Care Teams Seismic Prospecting Observer Helper Relationship Specialty Start Date End Date Dima Shah, JINA, BULLDOZER ENGINEER [address] [place] [address] PCP - General Nurse Practitioner 08/05/23 documented as of this encounter
--- OUTSIDE RECORDS SUMMARY | 2024-05-12 03:27 | XMS_ITS | Encounter Summary ---
[facility] Organization [facility] Address [address] [place] [address] Care Team Providers Care Command Post Superintendent Name Role Phone Dima Shah APRN, BURRITO MAKER Primary Care Provide r Reason for Visit * Reason Comments Pelvic Health * Therapies (Routine) - New Request Specialty Diagnoses / Procedures Referred By Jerome ontiveros Referred To Contact Diagnoses Kidney [place] [address] [place] [address] Referral ID Status Reason Start Date Expiration Date V isits Requested Visits Authorized [id number] New Request 01/03/2024 01/02/2025 1 1 Encounter Details Date Type Department Care Team (Late st Contact Info) Description 03/20/2024 9:15 AM CDT Office Visit [facility] [place] [address] [place], [place] [phone] [place] [address] [place] [address] Pelvic and perineal pain (Primary [...] of this encounter Progress Notes * Radha Romo, PT - 03/20/2024 9:15 AM CDT Physical Therapy - Pelvic Floor Evaluation/Plan of Care Initial Certification Period: 03/20/2024 to 07/19/24 Referring Provider: Quyen Schuster Visit Diagnosis: 1. Pelvic and perineal pain 2. Left lower quadrant abdominal pain Precautions: None Orders: Evaluate & treat Onset/Referral Date: referral Dec 2023 SUBJECTIVE Reason for Visit: Tiara is a very pleasant, alert, cooperative 43 yo woman, who is referred to PFPTfor 1 year history of left lower abdominal quadrant pain, constant, variable , and some urinary urgency. She states her symptoms have been present for about 1 year, she feels like they worsening, becomingconstant, and more increased in intensity. She has been seen by gastro, uro, and referred for PFPT Patient Therapy Goals: Reduction in urinary complaints and pain Past Medical History: Tiara has a past medical history of Abnormal vaginal bleeding (03/27/2016), Chronic female pelvic pain (01/16/2011), BHAVESH (generalized anxiety disorder) ([facility]) (03/21/2020), History of tobacco abuse (05/19/2019), and Kidney stones (08/29/2010). Recently Experienced (Red Flags): None Surgeries: Patient has a past surgical history that includes dilation and curettage (04/2006); Kidney stone surgery (Left, 09/2014, 2018 x 2); and wisdom teeth extraction.. Medications: Patient has a current medication list which includes the following prescription(s): amitriptyline, dicyclomine, ibuprofen, medical cannabis, multiple vitamin, norethindrone, ondansetron,and oxycodone.. Previous Treatment: Prior Physical Therapy: Pt has had no prior physical therapy for this complaint Benefited from previous treatment: not applicable Urinary Function: Urinary frequency: Voiding during waking hours is every 2-3 hour/s and 1-2 time per night. Patient does endorse participating in just in case voids. Once urge to void presents, able to delay urination a few hours. Patient reports there is not pain with urination and there is not blood in urine. Patient reports they do have a strong urine stream. Patient reports difficulty initiating urine stream occasionally. Patient reports they do not feel they completely empty their bladder. Ranking of severity of urinary problem: 3/10 (0-10 scale with 10 being worst problem) Bowel Function: Frequency: Patient is reporting bowel movement 1 times per day Symptoms: Patient reports problems with constipation, straining, splinting required to foster evacuation, hemorrhoids, some rectal bleeding Ranking of severity of bowel problem: 9/10 (0-10 scale with 10 being worst problem) Abdominal/Pelvic Pain History: Pain description/history: Pain is located abdominally - left lower quadrant, can travel up and wrap around to back, Symptoms have been present for: 1 year Onset of pain was insidious Pain is constant, variable Quality of pain is Sharp and breathtaking Intensity of pain: 9/10 Pain affected by: empting the bladder, bowel movement, penetration - deeper penetration vaginal Pain relieved by: Sitting Ranking of severity of pain problem: 9/10 (0-10 scale with 10 being worst problem) Limitation in Lifestyle/Quality of life: She is not able to do her exercises like she used, dos not last as long, sex had been painful, but not sexually active at this time Male Specific Questions: N/A Sexual History: Tiara is not sexually active. 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 Patient History: High Complexity: 3 or more personal factors and/or comorbidities that impact plan of care: history of kidney stones, BHAVESH, PTSD OBJECTIVE -Prior to pelvic floor assessment, treating therapist educated patient on pelvic floor anatomy and role of pelvic floor assessment as it pertains to their plan of care. Therapist instructed patient on components for external and internal pelvic floor assessment, and possible outcomes of treatment. Patient verbalized understanding and consented to pelvic floor assessment and treatment. Musculoskeletal Exam Lumbopelvic Exam: ROM: hip ROM full, no chnge in symptoms. No symptoms with resisted HF, ER, IR Abdominal Exam: Palpation: Tenderness to palpation of obliques left, very localised at iliac crest, tender.Pain notchanged with resisted HF, or cough. Abdominal scars: None noted, only stretch bedolla from prgnancy, and patient also lost 100 lbs thru diet and exercise Diastasis recti: None noted Abdominal strength: fair External Pelvic Floor Exam: Perineal Visual Exam: Skin integrity is intact throughout perineum. Perineal body is normal. Voluntary Contraction Response: Present Palpation/Tone: Normal Pain: Nontender throughout pelvic floor Sensation: Intact throughout perineum No outcome data collected. Clinical Examination: High Complexity: Addressed 4 or more elements from body structures and functions (see above), and/or functional limitations as noted below. Today's Intervention/Charges: Physical Therapy Evaluation was completed and the patient was educated on the condition, planned therapy intervention and expectations from treatment. Manual therapy x 8 minutes: Instructed in and practiced colon massage techniques handout provided Self care/home management x 8 minutes: Patient was educated in bladder/pelvic floor muscle anatomy and normal urinary and bowel function. Instructed and trained in food and fluid irritants, fluid intake and healthy bladder and bowel habits. Educated in not using valsalva voiding. Instructed in self-care for dietary components to promote consistent bowel elimination, decreasing constipation, and attending to bowel cues for need to eliminate. Educational material issued and reviewed. Toileting position handout Timed Code Treatment Minutes: 16 Total Treatment Minutes: 45 ASSESSMENT PT Clinical Presentation: High Complexity: Evolving Clinical Presentation with unstable and unpredictable characteristics Clinical Decision Making: High Complexity Therapist Impression/Summary: left LAQ pain, sharp, variable, constant for past year and patient feel like it is worsening.Tenderness to localized palpation. Muscle tightness Recommendations/Equipments: PT indicated for above findings Significant Impairments: Muscle weakness, Muscle guarding, Muscular imbalances, Pain Functional Limitations: Difficulty with sports/leisure activities, pain if pursuing sexual activity, pain limiting / affecting daily activity Goals/Functional Outcomes: Patient will report symptom reduction from 9/10 to 0-3/10 related to urinary complaint, pain complaint in 12-16 weeks. Verbalize understanding of bladder/bowel fitness principles to foster reduction in symptoms in 12-16 weeks in order to improve sleep, improve exercise situations Return to prior level of function/ activity, include her yoga and pilates exercises she had done inprvious year, with minimal to no symptoms in 12-16 weeks. Potential Barriers to Goal Achievement or Learning: none Prognosis: Good PLAN Planned Intervention/Education: ADL/Self management, Biofeedback, Education, Manual Therapy, Neuromuscular re-education, Therapeutic Activities, Therapeutic Exercise Frequency: 2-10 treatments in the next 12-16 weeks Duration: 120 Discharge Plan: Patient will be discharged from therapy when goals are achieved or patient plateausin progress. Informed Consent: The patient was educated on the condition, planned therapy intervention and expectation from treatment. Goals were a collaborative effort of the therapist and patient caregiver. Risks, benefits and alternatives to treatment have been explained. Patient and/or family in agreement with the care plan. Plan for Next Treatment: internal assessment of pf muscles patient permission, manual STM abdominalquadrant, exercises such as quadruped rock, H/K's bird dog, etc., rotational stretches The emotionally impaired teacher is completed by the therapist and the referring clinician's electronic signature certifies medical necessity for the plan above. documented in this encounter Plan of Treatment Upcoming Encounters Date Type Department Care Team (Late st Contact Info) Description 05/19/2024 9:15 AM CDT Appointment [facility] [address] [place] [phone] Marla Sprague APRN, BURRITO MAKER [address] [place] [address] 05/31/2024 1:45 PM CDT Telemedicine [facility]-HATCH TENDER [address] [facility], [address] [place] [phone] [place] [address] [place], [place] [phone] Scheduled Referrals Name Type Priority Associated Diagnoses Orde r Schedule Physical Therapy Referral Routine Kidney stone Renal colic Ordered: 01/03/2024 documented as of this encounter Visit Diagnoses Diagnosis Pelvic and perineal pain- Primary Unspecified symptom associated with female genital organs Left lower quadrant abdominal pain documented in this encounter Care Teams Command Post Superintendent Relationship Specialty Start Date End Date Dima Shah, TYPING POOL SUPERVISOR, BURRITO MAKER [address] [place] [address] PCP - General Nurse Practitioner 08/05/23 documented as of this encounter
--- OUTSIDE RECORDS SUMMARY | 2024-05-12 03:27 | XMS_ITS | Encounter Summary ---
Author Organization [facility] Address [address] [place] [address] Care Team Providers Care Adhesive Bonding Machine Operator Name Role Phone Dima Shah APRN, CNP Primary Care Provide r Encounter Details Date Type Department Care Team (Latest Contact Info) Description 08/26/1995 Orders Only Isabell Melchor APRN, DRAFTER SEISMOGRAPH [address] [facility] [place] [address] Social History Tobacco Use Types Packs/Day Years Used Date Smoking Tobacco: Never Assessed Sex and Gender Information Value Date Recorded Sex Assigned at Not on file Gender Identity Not on file Sexual Orientation Not on file documented as of this encounter Plan of Treatment Upcoming Encounters Date Type Department Care Team (Late st Contact Info) Description 05/19/2024 9:15 AM CDT Appointment [facility] [address] [place] [phone] Marla Sprague APRN, DRAFTER SEISMOGRAPH [address] [place], [place] [phone] 05/31/2024 1:45 PM CDT Telemedicine [facility]-ACCOUNT MANAGER B2B [address] [facility], [address] [place] [phone] [place] [address] [place] [address] documented as of this encounter Visit Diagnoses Not on filedocumented in this encounter Care Teams Adhesive Bonding Machine Operator Relationship Specialty Start Date End Date Dima Shah, RN TELEMETRY, DRAFTER SEISMOGRAPH [address] [place] [address] PCP - General Nurse Practitioner 08/05/23 documented as of this encounter
--- OUTSIDE RECORDS SUMMARY | 2024-05-12 03:27 | XMS_ITS | Encounter Summary ---
Author Organization [facility] Address [address] [place] [address] Care Team Providers Care Bilingual Spanish Inbound Sales Name Role Phone Dima Shah APRN, TARYN Primary Care Provide r Reason for Visit * Reason Onset Date Comments Refill 02/23/2024 Encounter Details Date Type Department Care Team (Late st Contact Info) Description 02/23/2024 Refill [facility] [address] Re[facility] [address] [facility]. [place], [place] [phone] Marla Sprague APRN, BLIND STITCH MACHINE OPERATOR [address] [place], [place] [phone] Refill Social History Tobacco Use Types Packs/Day [...] as of this encounter Nursing Notes * Heather Blanco RN - 02/23/2024 9:59 AM CDT Last OV: 02/02/24 Next OV: NA Last refill date: 01/25/24 Plan: Continue oxycodone 5mg 1-2 tablets daily for severe pain #60. May call for one refill prior to next visit.discussed decreasing this as able, not recommended for alf use, particularly if seeing some relief from the new medication for endometriosis, can slowly self taper Can use acetaminophen 500mg 1-2 tabs three times a day as needed to replace ibuprofen. documented in this encounter Plan of Treatment Upcoming Encounters Date Type Department Care Team (Late st Contact Info) Description 05/19/2024 9:15 AM CDT Appointment [facility] [address] [place] [phone] Marla Sprague APRN, BLIND STITCH MACHINE OPERATOR [address] [place] [address] 05/31/2024 1:45 PM CDT Telemedicine [facility]-CHOIR DIRECTOR [address] [facility], [address] [place] [phone] [place] [address] [place], [place] [phone] documented as of this encounter Visit Diagnoses Diagnosis Chronic pain syndrome documented in this encounter Care Teams Bilingual Spanish Inbound Sales Relationship Specialty Start Date End Date Dima Shah APRN, BLIND STITCH MACHINE OPERATOR [address] [place] [address] PCP - General Nurse Practitioner 08/05/23 documented as of this encounter
--- OUTSIDE RECORDS SUMMARY | 2024-05-12 03:27 | XMS_ITS | Encounter Summary ---
Author Organization [facility] Address [address] [place] [address] Care Team Providers Care Heater Mechanic Name Role Phone Dima Shah APRN, TARYN Primary Care Provide r Encounter Details Date Type Department Care Team (Late st Contact Info) Description 02/17/2024 1:30 PM CDT Lab Visit [facility] [address] [place], [place] [address] LLQ pain; Night sweats; Nausea; Routine screening for STI (sexually transmitted infection); Arthralgia, unspecified joint Social History Tobacco Use Types Packs/Day Years [...] Info) Description 05/19/2024 9:15 AM CDT Appointment [facility] [address] [place] [phone] Marla Sprague APRN, GRAVEL ROOFER [address] [place] [address] 05/31/2024 1:45 PM CDT Telemedicine [facility]AS400 ANALYST [address] [facility], [address] [place] [phone] [place] [address] [place] [address] documented as of this encounter Procedures Procedure Name Priority Date/Time Associated Diagnosis Comments CBC AND DIFFERENTIAL PANEL Routine 02/16 12:42 PM CDT LLQ pain Night sweats Nausea DEHYDROEPIANDROSTERONE Routine 12:42 PM CDT LLQ pain Night sweats Nausea TESTOSTERONE, FEMALE OR CHILDREN Routine 02/17/2024 12:42 PM CDT LLQ pain Night sweats Nausea PROGESTERONE ADULT Routine 02/17/2024 12:42 PM CDT LLQ pain Night sweats Nausea TREPONEMA SCREEN Routine 02/17/2024 12:42 PM CDT Routine screening for STI (sexually transmitted infection) Night sweats Nausea NORBERT WITH REFLEX TO NORBERT PROFILE 2 Routine 02/17/2024 12:42 PM CDT Arthralgia, unspecified joint HIV 1/2 AG/AB 4TH GEN Routine 02/17/2024 12:42 PM CDT Routine screening for STI (sexually transmitted infection) Night sweats Nausea CELIAC DISEASE REFLEX WITH IGA Routine 02/17/2024 12:42 PM CDT LLQ pain Night sweats Nausea VITAMIN D 25-HYDROXY, TOTAL Routine 01/28 12:42 PM CDT LLQ pain Night sweats Nausea COMPLETE BLOOD COUNT-W/DIFF Routine 01/28 12:42 PM CDT LLQ pain Night sweats Nausea LIVER PANEL(HEPATIC FUNCTION PANEL) Routine 02/17/2024 12:42 PM CDT LLQ pain Night sweats Nausea BASIC METABOLIC PANEL Routine 02/17/2024 12:42 PM CDT LLQ pain Night sweats Nausea RHEUMATOID FACTOR, QUANT Routine 024 12:42 PM CDT Arthralgia, unspecified joint HEPATITIS C ANTIBODY, WITH REFLEX Routine 02/17/2024 12:42 PM CDT Routine screening for STI (sexually transmitted infection) Night sweats Nausea FERRITIN Routine 02/17/2024 12:42 [...] PM CDT LLQ pain Night sweats Nausea HBSAG (HEPATITIS B SURFACE AG) Routine 02/17/2024 12:42 PM CDT Routine screening for STI (sexually transmitted infection) Night sweats Nausea FOLATE ONLY (4HR FAST RECOMMENDED) Routine 02/17/2024 12:42 PM CDT LLQ pain Night sweats Nausea VITAMIN B12 ONLY Routine 02/17/2024 12:42 PM CDT LLQ pain Night sweats Nausea IRON PROFILE (IRON,TIBC,%SAT.(CALC)) Routine 02/17/2024 12:42 PM CDT LLQ pain Night sweats Nausea documented in this encounter Results * Complete Blood Count-W/Diff (02/17/2024 12:42 PM T) WBC 6.5 3.5 - 10.5 x10(9)/L 02/17/2024 12:46 PM [facility] RBC 4.51 3.90 - 5.03 x10(12)/L 02/17/2024 12:46 PM [facility] Hemoglobin 13.7 12.0 - 15.5 g/dL 02/17/2024 12:46 PM [facility] HCT 40.4 34.9 - 44.5 % 02/17/2024 12:46 PM [facility] MCV 89.6 80.0 - 100.0 fL 02/17/2024 12:46 PM [facility] MCH 30.4 27.6 - 33.3 pg 02/17/2024 12:46 PM [facility] MCHC 33.9 31.5 - 35.2 g/dL 02/17/2024 12:46 PM [facility] RDW 13.5 11.9 - 15.5 % 02/17/2024 12:46 PM [facility] Platelets 260 150 - 450 x10(9)/L 02/17/2024 12:46 PM [facility] Automated NRBC 0 <=0 /100 WBC 02/17/2024 12:46 PM [facility] Neutrophil Absolute 3.7 1.7 - 7.0 10(9)/L 02/17/2024 12:46 PM [facility] Lymphocyte Absolute 2.4 1.0 - 4.8 10(9)/L 02/17/2024 12:46 PM [facility] Monocyte Absolute 0.3 0.2 - 0.9 10(9)/L 02/17/2024 12:46 PM [facility] Eosinophil Absolute 0.0 0.0 - 0.5 10(9)/L 02/17/2024 12:46 PM [facility] Basophil Absolute 0.0 0.0 - 0.3 10(9)/L 02/17/2024 12:46 PM [facility] Immature Granulocyte % 0.5 0.0 - 0.5 % 02/17/2024 12:46 PM CDT [facility] Blood Venipuncture / Unknown 02/17/2024 12:42 PM CDT 02/17/2024 12:42 PM CDT Dima Shah APRN, CNP LAB_1 [facility] [address] [place] [phone] * NORBERT with Reflex to NORBERT Profile 2 (02/17/2024 12:42 PM CDT) [facility] NORBERT Interpretation Negative Negative 2023 11:52 AM CDT [facility] Blood Venipuncture / Unknown 02/17/2024 12:42 PM CDT 02/17/2024 12:42 PM CDT Dima Shah APRN, CNP LAB_1 Performing Organization Address [facility] Co de Phone Number [facility] [address] * Rheumatoid Factor, Quant (02/17/2024 12:42 PM CDT) [facility] Rheumatoid Factor, Quantitative <15 <=30 IU/mL 02/17/2024 8:25 PM CDT [facility] Blood Venipuncture / Unknown 02/17/2024 12:42 PM CDT 02/17/2024 12:42 PM CDT Dima Shah APRN, CNP LAB_1 Performing Organization Address City/[facility] Co de Phone Number [facility] [address] * Testosterone, female or children (02/17/2024 12:42 PM CDT) [facility] Testosterone Female or Children 17 9 - 55 ng/dL 02/21/2024 3:55 AM CDT [facility] [employer] [facility] [facility] Comment: REFERENCE INTERVAL: Testosterone by [employer] Females Premenopausal ??9-55 ng/dL Postmenopausal 5-32 ng/dL INTERPRETIVE INFORMATION: Testosterone by [employer] Free or bioavailable testosterone measurements may provide supportive information. For individuals on testosterone-suppressing hormone therapies (e.g., antiandrogens or estrogens), refer to cisgender female reference intervals. For a complete set of all established reference intervals, refer to ltd[employer]/Tests/Pub/[id number]. This test was developed and its performance characteristics determined by [facility]. It has not been cleared or approved by the US Food and Drug Administration. This test was performed in a CLIA certified laboratory and is intended for clinical purposes. Performed By: [facility] [address] [place] [address] [employer] Supervisor: Elver Randall MD, PhD CLIA Number: [id number] Blood Venipuncture / Unknown 02/17/2024 12:42 PM CDT 02/17/2024 12:42 PM CDT Dima Shah APRN, CNP LAB_1 Performing Organization Address City/State/[facility] Co de Phone Number [facility] [address], [place] [address] [place] [address] * Progesterone Adult (02/17/2024 12:42 PM CDT) Progesterone, Adult 0.3 ng/mL 02/18/2024 11:20 AM CDT [facility] Blood Venipuncture / Unknown 02/17/2024 12:42 PM CDT 02/17/2024 12:42 PM CDT Teresa [facility] - 02/18/2024 11:20 AM CDT Expected values for menstruating females Follicular Phase: <0.1-0.3 ng/mL Luteal Phase: 1.2-15.9 ng/mL Expected values for females 1st Trimester (4-12 weeks): 2.8-147.3 ng/mL 2nd Trimester (13-24 weeks): 22.5-95.3 ng/mL 3rd Trimester (25-36 weeks): 27.9-242.5 ng/mL Dima Shah APRN, CNP LAB_1 Performing Organization Address City/[facility]/ZIP Co de Phone Number [facility] [address] * LH (02/17/2024 12:42 PM CDT) LH <1 mIU/mL 02/17/2024 8:56 PM CDT [facility] Blood Venipuncture / Unknown 02/17/2024 12:42 PM CDT 02/17/2024 12:42 PM CDT Narrative [facility] - 02/17/2024 8:56 PM CDT Expected values for menstruating females Follicular Phase: 2-12 mIU/mL Mid-Cycle Peak: 8-89 mIU/mL Luteal Phase: 1-14 mIU/mL Expected values for postmenopausal females On HRT: 5-62 mIU/mL Dima Shah APRN, CNP LAB_1 Performing Organization Address [facility] Co de Phone Number [facility] [address] * FSH (02/17/2024 12:42 PM CDT) FSH 4.2 mIU/mL 02/17/2024 9:09 PM CDT [facility] Blood Venipuncture / Unknown 02/17/2024 12:42 PM CDT 02/17/2024 12:42 PM CDT Narrative [facility] - 02/17/2024 9:09 PM CDT Expected values for mensturating females Follicular Phase: 3.0-8.1 mIU/mL Mid-Cycle Peak: 2.6-16.7 mIU/mL Luteal Phase: 1.4-5.5 mIU/mL Post Menopausal Females without HRT: 26.8-133.4 mIU/mL Dima Shah APRN, TARYN LAB_1 Performing Organization Address City/[facility] Co de Phone Number [facility] [address] * Estradiol (02/17/2024 12:42 PM CDT) Estradiol 11 pg/mL 02/17/2024 9:09 PM CDT [facility] Blood Venipuncture / Unknown 02/17/2024 12:42 PM CDT 02/17/2024 12:42 PM CDT Narrative [facility] - 02/17/2024 9:09 PM CDT The [...] on HRT: <10-28 pg/mL Dima Shah APRN, GRAVEL ROOFER LAB_1 Performing Organization Address City/State/[facility] Co de Phone Number [facility] [address] * Dehydroepiandrosterone (02/17/2024 12:42 PM CDT) Dehydroepiandrosterone 4.125 0.630 - 4.700 ng/mL 02/21/2024 3:55 AM CDT [facility] Comment: INTERPRETIVE INFORMATION: Dehydroepiandrosterone, Females 18 years and older: ??Postmenopausal: 0.60-5.73 ng/mL REFERENCE INTERVAL: Dehydroepiandrosterone by TMS Access complete set of age- and/or gender-specific reference intervals for this test in the [facility] Test Directory ([employer]). This test was developed and its performance characteristics determined by [facility]. It has not been cleared or approved by the US Food and Drug Administration. This test was performed in a CLIA certified laboratory and is intended for clinical purposes. Performed By: [facility] [address] [place] [address] [employer] Supervisor: Elver Randall MD, PhD CLIA Number: [id number] Blood Venipuncture / Unknown 02/17/2024 12:42 PM CDT 02/17/2024 12:42 PM CDT Dima Shah APRN, CNP LAB_1 Performing Organization Address City/[facility]/ZIP Co de Phone Number [facility] [address], [place] [address] [place] [address] * (ABNORMAL) Liver Panel(Hepatic Function Panel) (02/17/2024 12:42 PM CDT) Alkaline Phosphatase 39(L) 40 - 150 U/L 02/17/2024 3:31 PM CDT [facility] Bilirubin, Total 2.4(H) 0.2 - 1.2 mg/dL 02/17/2024 3:31 PM T [facility] Bilirubin, Direct 0.7(H) 0.0 - 0.5 mg/dL 02/17/2024 3:31 PM T [facility] AST (SGOT) 16 10 - 40 U/L 02/17/2024 3:31 PM [facility] ALT (SGPT) 18 <=55 U/L 02/17/2024 3:31 PM T [facility] Protein, Total 7.7 6.4 - 8.3 g/dL 02/17/2024 3:31 PM [facility] Albumin 4.6 3.5 - 5.0 g/dL 02/17/2024 3:31 PM [facility] Blood Venipuncture / Unknown 02/17/2024 12:42 PM CDT 02/17/2024 12:42 PM CDT Dima Shah APRN, CNP LAB_1 Performing Organization Address City/[facility]/ZIP Co de Phone Number [facility] [address] [place] [phone] * Basic Metabolic Panel (02/17/2024 12:42 PM CDT) Pathologist [facility] Sodium 140 136 - 145 mmol/L 02/17/2024 3:31 PM CDT [facility] Potassium 3.8 3.5 - 5.1 mmol/L 02/17/2024 3:31 PM T [facility] Chloride 108 98 - 109 mmol/L 02/17/2024 3:31 PM [facility] CO2 20 20 - 29 mmol/L 02/17/2024 3:31 PM [facility] Anion Gap 12 7 - 16 mmol/L 02/17/2024 3:31 PM [facility] Calcium 9.7 8.4 - 10.4 mg/dL 02/17/2024 3:31 PM [facility] BUN 10 7 - 26 mg/dL 02/17/2024 3:31 PM [facility] Creatinine 0.84 0.55 - 1.02 mg/dL 02/17/2024 3:31 PM [facility] Glucose 86 70 - 100 mg/dL 02/17/2024 3:31 PM [facility] Comment:The given reference range is for the fasting state. Non-fasting reference range for glucose is 70 - 180 mg/dL. GFR, Estimated >60 >60 mL/min/1.7 3m2 02/17/2024 3:31 PM [facility] Hours Fasting 0.1 8 - 12 Hours 02/17/2024 3:31 PM [facility] Comment:Lab unable to obtain patient's fasting status at time of specimen collection. Blood Venipuncture / Unknown 02/17/2024 12:42 PM CDT 02/17/2024 12:42 PM CDT Dima Shah APRN, CNP LAB_1 Performing Organization Address [facility]/ZIP Co de Phone Number [facility] [address] [place] [phone] * Vitamin D 25-Hydroxy, Total (02/17/2024 12:42 PM CDT) Vitamin D, 25-OH, Total 67 30 - 80 ng/mL 02/17/2024 9:06 PM CDT [facility] Blood Venipuncture / Unknown 02/17/2024 12:42 PM CDT 02/17/2024 12:42 PM CDT Dima Shah APRN, CNP LAB_1 [facility] [address] [place], [place] [phone] [place] [address] * Celiac Disease Reflex with IgA (02/17/2024 12:42 PM CDT) IgA, Serum 106 65 - 421 mg/dL 02/18/2024 2:04 PM CDT [facility] Tissue Transglutaminase Antibody, IgA 0.2 0.0 - 6.9 U/mL 02/18/2024 2:04 PM CDT [facility] Tissue Transglutaminase Antibody, IgA Interpretation Negative Negative 02/18/2024 2:04 PM CDT [facility] Blood Venipuncture / Unknown 02/17/2024 12:42 PM CDT 02/17/2024 12:42 PM CDT Dima Shah APRN, CNP LAB_1 Performing Organization Address [facility] Co de Phone Number [facility] [address] * Hepatitis B Surface Antigen (02/17/2024 12:42 PM CDT) Pathologist [facility] Hepatitis B Surface Antigen Negative (Non Reactive) Negative (Non Reactive) 02/17/2024 8:56 PM CDT [facility] Blood Venipuncture / Unknown 02/17/2024 12:42 PM CDT 02/17/2024 12:42 PM CDT Dima Shah APRN, GRAVEL ROOFER LAB_1 [facility] [address] [place], [place] [phone] [place] [address] * Treponema Screen (02/17/2024 12:42 PM CDT) Pathologist [facility] Treponema Screen Result 0.095 {s_co_ratio } 02/17/2024 8:56 PM CDT [facility] Treponema Screen Interpretation Non Reactive Non Reactive 02/17/2024 8:56 PM CDT [facility] Blood Venipuncture / Unknown 02/17/2024 12:42 PM CDT 02/17/2024 12:42 PM CDT Dima Shah APRN, CNP LAB_1 Performing Organization Address [facility] Phone Number [facility] [address] [place] [address] * HIV 1/2 Ag/Ab 4th Generation (02/17/2024 12:42 PM CDT) Pathologist [facility] HIV 1/2 Antigen/Antib karsten (4th generation) Negative (Non Reactive) Negative (Non Reactive) 02/17/2024 8:57 PM CDT [facility] Comment:HIV-1 p24 Antigen an d HIV-1/HIV-2 Antibody not detected Blood Venipuncture / Unknown 02/17/2024 12:42 PM CDT 02/17/2024 12:42 PM CDT Dima Shah APRN, CNP LAB_1 Performing Organization Address [facility] Phone Number [facility] [address] [place] [address] * Hepatitis C Antibody, with Reflex (02/17/2024 12:42 PM CDT) [facility] Hepatitis C Antibody Negative (Non Reactive) Negative (Non Reactive) 02/17/2024 8:57 PM CDT [facility] Comment:Antibodies to HCV no t detected. Does not exclude the possiblity of exposure to HCV. Blood Venipuncture / Unknown 02/17/2024 12:42 PM CDT 02/17/2024 12:42 PM CDT Dima Shah APRN, CNP LAB_1 Performing Organization Address [facility] Phone Number [facility] [address] [place] [address] * (ABNORMAL) Vitamin B12 Only (02/17/2024 12:42 PM CDT) Pathologist [facility] Vitamin B12 888(H) 213 - 816 pg/mL 02/17/2024 9:09 PM CDT [facility] Blood Venipuncture / Unknown 02/17/2024 12:42 PM CDT 02/17/2024 12:42 PM CDT Dima Shah APRN, CNP LAB_1 Performing Organization Address [facility] Phone Number [facility] [address] * TSH with Free T4 (if TSH Abnormal) (02/17/2024 12:42 PM CDT) TSH, Reflex 1.30 0.30 - 4.50 uIU/mL 02/17/2024 8:58 PM CDT [facility] Blood Venipuncture / Unknown 02/17/2024 12:42 PM CDT 02/17/2024 12:42 PM CDT Dima Shah APRN, TARYN LAB_1 Performing Organization Address [facility] Phone Number [facility] [employer] [facility] [address] * Iron Profile (Iron,TIBC,%Sat.(Calc)) (02/17/2024 12:42 PM CDT) Iron 100 50 - 170 mcg/dL 02/17/2024 8:45 PM CDT [facility] Transferrin 305 180 - 382 mg/dL 02/17/2024 8:45 PM CDT [facility] TIBC, Calculated 381 240 - 450 mcg/dL 02/17/2024 8:45 PM CDT [facility] % Saturation, Calculated 26 10 - 50 % 02/17/2024 8:45 PM CDT [facility] Blood Venipuncture / Unknown 02/17/2024 12:42 PM CDT 02/17/2024 12:42 PM CDT Dima Shah APRN, CNP LAB_1 Performing Organization Address [facility] de Phone Number [facility] [address] [place], [place] [phone] [place] [address] * Folate Only (4Hr Fast Recommended) (02/17/2024 12:42 PM CDT) Folate 15.0 >=7.0 ng/mL 02/17/2024 9:21 PM CDT [facility] Blood Venipuncture / Unknown 02/17/2024 12:42 PM CDT 02/17/2024 12:42 PM CDT Dima Shah APRN, CNP LAB_1 Performing Organization Address City/[facility]/ZIP Co de Phone Number [facility] [address] * Ferritin (02/17/2024 12:42 PM CDT) Pathologist [facility] Ferritin 118 9 - 204 ng/mL 02/17/2024 9:09 PM CDT [facility] Blood Venipuncture / Unknown 02/17/2024 12:42 PM CDT 02/17/2024 12:42 PM CDT Dima Shah APRN, CNP LAB_1 Performing Organization Address City/[facility]/ZIP Co de Phone Number [facility] [address] * C-Reactive Protein (02/17/2024 12:42 PM CDT) Pathologist [facility] C-Reactive Protein <0.5 0.0 - 0.5 mg/dL 02/17/2024 3:31 PM CDT [facility] Blood Venipuncture / Unknown 02/17/2024 12:42 PM CDT 02/17/2024 12:42 PM CDT Dima Shah APRN, CNP LAB_1 Performing Organization Address City/[facility]/ZIP Co de Phone Number [facility] [address] [place] [phone] documented in this encounter Visit Diagnoses Diagnosis LLQ pain Abdominal pain, left lower quadrant Night sweats Generalized hyperhidrosis Nausea Nausea alone Routine screening for STI (sexually transmitted infection) Screening examination for venereal disease Arthralgia, unspecified joint documented in this encounter Care Teams Heater Mechanic Relationship Specialty Start Date End Date Dima Shah, BULK INTAKE WORKER, GRAVEL ROOFER [address] [place] [address] PCP - General Nurse Practitioner 08/05/23 documented as of this encounter
--- OUTSIDE RECORDS SUMMARY | 2024-05-12 03:27 | XMS_ITS | Encounter Summary ---
Author Organization [facility] Address [address] [place] [address] Care Team Providers Care Cement Despatch Operator Name Role Phone Dima Shah APRN, CNP Primary Care Provide r Encounter Details Date Type Department Care Team (Latest Contact Info) Description 03/05/1995 Orders Only Nadine Jaime Social History Tobacco Use Types Packs/Day Years Used Date Smoking Tobacco: Never Assessed Sex and Gender Information Value Date Recorded Sex Assigned at Not on file Gender Identity Not on file Sexual Orientation Not on file documented as of this encounter Plan of Treatment Upcoming Encounters Date Type Department Care Team (Late st Contact Info) Description 05/19/2024 9:15 AM CDT Appointment [facility] [address] [place] [phone] Marla Sprague APRN, WEB COMMUNICATIONS SPECIALIST [address] [place], [place] [address] 05/31/2024 1:45 PM CDT Telemedicine [facility]-HOST COORDINATOR [address] [facility], [address] [place] [address] [place] [address] [place], [place] [phone] documented as of this encounter Visit Diagnoses Not on filedocumented in this encounter Care Teams Cement Despatch Operator Relationship Specialty Start Date End Date Dima Shah APRN, WEB COMMUNICATIONS SPECIALIST [address] [place] [address] PCP - General Nurse Practitioner 08/05/23 documented as of this encounter
--- OUTSIDE RECORDS SUMMARY | 2024-05-12 03:27 | XMS_ITS | Encounter Summary ---
Author Organization [facility] Address [address] [place] [address] Care Team Providers Care Bung Sewer Name Role Phone Dima Shah APRN, CNP Primary Care Provide r Reason for Referral * Procedure/Equipment (Routine) - Incomplete Specialty Diagnoses / Procedures Referred By Contac t Referred To Contact Diagnoses Chronic low back pain without sciatica, unspecified back pain laterality Procedures Tens unit (E0730) Marla Sprague APRN, CNP [address] [place] [address] Referral ID Status Reason Start Date Expiration Date V isits Requested Visits Authorized [id number] Incomplete 02/02/2024 05/03/2025 1 1 APIST'S ASSISTANT Reason for Visit * Reason Comments Video Visit Encounter Details Date Type Department Care Team (Late st Contact Info) Description 02/02/2024 10:00 AM THERAPIST'S ASSISTANT Telemedicine [place] [address] [facility] [address] [facility] [place], [place] [id number] Marla Sprague APRN, CNP [address] [place], [place] [id number] Chronic low back pain without sciatica, unspecified back pain laterality (Primary Dx); LLQ pain; PTSD (post-traumatic stress disorder) ([facility]); Chronic prescription opiate use Social History Tobacco Use Types Packs/Day Years Used Date Smoking Tobacco: Former Cigarettes 0.5 19 Smokeless Tobacco: Never Alcohol Use Standard Drinks/Week Comments Not Currently 1 (1 standard drink = 0.6 oz pur e alcohol) occa. PHQ-2 Answer Date Recorded PHQ-2 Score 0 10/02/2019 Sex and Gender Information Value Date Recorded Sex Assigned at Not on file Gender Identity Not on file Sexual Orientation Not on file documented as of this encounter Progress Notes * Mary Jo Mcneil MA - 02/02/2024 10:00 AM CST Before we can start this telephone/video visit, the patient verbally consents to the following: Patient name and date of : confirmed You understand this is a virtual/video visit: yes Physical location of patient in case of emergency: Home The telehealth visit will be billed to their insurance: bs As a reminder, the [employer] number that your provider calls on is random and not monitored. If you have questions, please call the nurse line at [phone] option #2 APIST'S ASSISTANT * Marla Sprague APRN, CNP - 02/02/2024 10:00 AM CST This visit was completed as a virtual [...] in case of emergency. Patient was in clinic. Provider was working remotely from home. Patient verbally consented to visit and demonstrated an understanding of the limitations of this virtual visit. F/U visit in PM&R/ Interventional Pain Management Subjective: Tiara Agee is a 43 y.o. female presents for evaluation regarding chronic pain Pain location: abdominal pain wrapping around into back Pain Severity: 6-9/10 Timing: constant Quality: sharp and dull depending on the day Trend: staying the same Aggravated by activity the day before, Improved by medications, resting, heat Associated symptoms: denies numbness and tingling , denies weakness , Denies any spinal related bowel or bladder changes. Tiara is a patient of Tiara Hollingsworth, that I am seeing in her absence. Last OV was 11/23/2024 Tiara Agee is a 43 y.o. with [...] not found, would not recommend continuing opioids technician terminal and repeater. PRIOR TREATMENTS: Ultrasound, Heat, and Medications PRIOR INJECTIONS: N/A PRIOR MEDICATIONS: Tylenol, Biofreeze, castor oil, Toradol, ibuprofen, amitriptyline, hydrocodone, -tizanidine trial-wasn't helpful CURRENT PAIN TREATMENTS -Tylenol -amitriptyline trial 10mg -20mg -oxycodone trial -Medical cannabis trial She did see urology on 01/12/2024 and they had done some imaging and urology did not believe the pain was from the ureter. Urology has recommended Pelvic floor PT. She was seen by REAL ESTATE TEACHER for follow up as the thought of the pain was endometriosis. They took out the IUD and started norethindrone and told her it would take 3-4 weeks not note some change. She also recommended not using the oxycodone on a daily basis. Tiara doesn't like how the oxycodone makes her brain feel. She waits to take it until she is miserable. She is using it every day. She will use 1/2 tab some days and other days she needs 3. She uses the #60 tabs in a month. ROS: Denies any new GI, , ENT, Vision, Abdominal pain, headache, breathing difficulty, fevers, fatigue, weight changes, edema, or chest pain. SOCIAL HISTORY Marital status: Engaged Occupation: Stay at home mom Tobacco use: Former Alcohol use: No Drug use: No History of substance use disorder treatment: No Medications: Reviewed in [facility] Allergies: Reviewed in [facility] Past medical, surgical and social history: Reviewed in [facility] Physical Examination: vital signs There were [...] Judgment: Judgment normal. Assessment: ICD-10-CM 1. Chronic low back pain without sciatica, unspecified back pain laterality M54.50 Tens unit (E0730) G89.29 2. LLQ pain R10.32 3. PTSD (post-traumatic stress disorder) ([facility]) F43.10 4. Chronic prescription opiate use Z79.891 Plan: Schedule Pelvic PT Thoracic/lumbar MRIs to [...] decreasing this as able, not recommended for technician terminal and repeater use, particularly if seeing some relief from the new medication for endometriosis, can slowly self taper Can use acetaminophen 500mg 1-2 tabs three times a day as needed to replace ibuprofen. Medical cannabis certification completed previously-she does report this helps with sleep at night Follow up in 2 months - telehealth. CABLE ENGINEER [employer]IDE PLANT: Reviewed today, no concerns noted. The patient understands the plan and all questions were addressed during discussion. Marla Sprague APRN, CNP Pain Management APIST'S ASSISTANT documented in this encounter Plan of Treatment Upcoming Encounters Date Type Department Care Team (Late st Contact Info) Description 05/19/2024 9:15 AM CDT Appointment [facility] [address] [place] [phone] Marla Sprague APRN, FRONT OFFICE MEDICAL ASSISTANT [address] [place] [address] 05/31/2024 1:45 PM CDT Telemedicine [facility] [address] [facility], [address] [place] [phone] [place] [address] [place] [address] documented as of this encounter Visit Diagnoses Diagnosis Chronic low back pain without sciatica, unspecified back pain laterality- Primary LLQ pain Abdominal pain, left lower quadrant PTSD (post-traumatic stress disorder) ([facility]) Posttraumatic stress disorder Chronic prescription opiate use documented in this encounter Care Teams Bung Sewer Relationship Specialty Start Date End Date Dima Shah APRN, FRONT OFFICE MEDICAL ASSISTANT [address] [place] [address] PCP - General Nurse Practitioner 08/05/23 documented as of this encounter
--- OUTSIDE RECORDS SUMMARY | 2024-05-12 03:27 | XMS_ITS | Encounter Summary ---
Author Organization [facility] Address [address] [address] Care Team Providers Care Hostess Cashier Name Role Phone Dima Shah APRN, SAMPLE MAKER HAND Primary Care Provide r Encounter Details Date Type Department Care Team (Late st Contact Info) Description 02/13/2000 Orders Only [facility] Lawrence Adams MD [facility] [id number] [place] [id number] Social History Tobacco Use Types Packs/Day Years Used Date Smoking Tobacco: Never Assessed Sex and Gender Information Value Date Recorded Sex Assigned at Not on file Gender Identity Not on file Sexual Orientation Not on file documented as of this encounter Plan of Treatment Upcoming Encounters Date Type Department Care Team (Late st Contact Info) Description 05/19/2024 9:15 AM CDT Appointment [facility] [address] [place] [phone] Marla Sprague APRN, SAMPLE MAKER HAND [address] [place], [place] [address] 05/31/2024 1:45 PM CDT Telemedicine [facility] [address] [facility], [address] [place] [phone] [place] [address] [facility] [address] [place], [place] [phone] documented as of this encounter Visit Diagnoses Not on filedocumented in this encounter Care Teams Hostess Cashier Relationship Specialty Start Date End Date Dima Shah, JINA, SAMPLE MAKER HAND [address] [place] [address] PCP - General Nurse Practitioner 08/05/23 documented as of this encounter
--- OUTSIDE RECORDS SUMMARY | 2024-05-12 03:27 | XMS_ITS | Encounter Summary ---
Author Organization [facility] Address [address] [place] [address] Care Team Providers Care President [employer] Name Role Phone Dima Shah APRN, TARYN Primary Care Provide r Encounter Details Date Type Department Care Team (Latest Contact Info) Description 12/28/1995 Orders Only Nadine Jaime Social History Tobacco [...] Info) Description 05/19/2024 9:15 AM CDT Appointment [facility] [address] [place] [phone] Marla Sprague APRN, BUDGET COUNSELOR [address] [place], [place] [address] 05/31/2024 1:45 PM CDT Telemedicine [facility] [address] [facility], [address] [place] [phone] [place] [address] [place] [address] documented as of this encounter Visit Diagnoses Not on filedocumented in this encounter Care Teams President [employer] Relationship Specialty Start Date End Date Dima Shah APRN, BUDGET COUNSELOR [address] [place] [address] PCP - General Nurse Practitioner 08/05/23 documented as of this encounter
[2024-05-12] MEDS: KETOROLAC 30 MG/ML inj IM (04:18)
== END 2024-05-12 04:26 | disposition home or self-care (01) ==
PROVIDERS: Emergency Provider Family Medicine
DX: M25.511 Pain in right shoulder (principal)
CPT/HCPCS: 73030; 96372; 99281; 99283; J1885